=== PATIENT | female | born 1995 | race Caucasian/White ===

== ENCOUNTER 2016-07-25 00:32 | Emergency (ER) | payer OTHER ==
[~2016-07-25] VITALS: Ht 167.6 cm; Wt 110.0 kg
[2016-07-25 00:33] VITALS: TEMP 37.2; Ht 167.6 cm; Wt 110.0 kg
[2016-07-25] MEDS ORDERED: PRENTAB26 PO (00:55)
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
[2016-07-25 01:15] LABS: URINE APPEARANCE CLEAR (CLEAR); URINE BILIRUBIN NEG (NEG); URINE COLOR YELLOW; URINE EPITHELIAL CELL AUTO >30 /lpf (0-5); URINE NITRITE NEG (NEG); URINE SPECIFIC GRAVITY 1.016 (1.000-1.030); UROBILINOGEN NEG (NEG)
[2016-07-25 01:16] LABS: MANUAL MICROSCOPIC REQUIRED? NO; REVIEW REQ? YES
[2016-07-25 01:24] LABS: URINE MUCUS PRESENT (NONE PRSENT)
[2016-07-25 02:01] VITALS: BP 120/85; PULSE 90; O2SAT 99
--- NOTE | 2016-07-25 07:04 | DIAGNOSTIC IMAGING REPORT ---
ECTOPIC ULTRASOUND CLINICAL HISTORY: and abdominal cramping COMPARISON STUDY: No previous studies for comparison. FINDINGS: A single alive intrauterine gestation was visualized. The crown-rump length measured 8.6 cm corresponding to an estimated postmenstrual age of 14 weeks and 3 days. heart rate was 150. The placenta was anterior. There is a probable anterior myometrial contraction. Amniotic fluid volume was borderline diminished. Follow-up ultrasonography with a detailed anatomic study is recommended. IMPRESSION: 1. Single live intrauterine gestation. The estimate a postmenstrual age is 14 weeks and 3 days 2. Borderline diminished amniotic fluid volume 3. Anterior placenta. Bulbous appearance of the anterior uterus possibly representing a focal contraction Electronically signed by: Attila Pacheco M.D. 07/25/2016 7:02 AM Dictated Date/Time: 07/25/2016 7:00 AM
== END 2016-07-25 02:20 | disposition home or self-care (01) ==
LOC: C.EDB 00:33
DX: O26.892 Other specified pregnancy related conditions, second trimester (principal); Z3A.14 14 weeks gestation of pregnancy

== ENCOUNTER → 2016-08-05 | Outpatient (CLI) | payer OTHER ==
[~2016-08-05] MED LIST: PRENTAB26 PO; PYRI1TAB30
[2016-08-05 16:24] LABS: GTGD 50 Grams
== END | disposition home or self-care (01) ==
LOC: C.LAB1850 13:51
PROVIDERS: ATTEND Obstetrics & Gynecology
DX: O09.612 Supervision of young primigravida, second trimester (principal)

== ENCOUNTER → 2016-08-14 | Outpatient (CLI) | payer OTHER ==
[2016-08-14 11:53] LABS: THYROID STIMULATING HORMONE 2.29 uIu/ml (0.300-4.500)
== END | disposition home or self-care (01) ==
LOC: C.LAB1850 09:57
PROVIDERS: ATTEND Physician Assistant
DX: O99.280 Endocrine, nutritional and metabolic diseases complicating pregnancy, unspecified trimester (principal)

== ENCOUNTER → 2016-08-17 | Outpatient (CLI) | payer OTHER ==
[2016-08-20 17:26] LABS: MICROSOMAL AB 1 IU/ML (<9)
== END | disposition home or self-care (01) ==
LOC: C.LAB 10:38
PROVIDERS: ATTEND Physician Assistant
DX: O99.280 Endocrine, nutritional and metabolic diseases complicating pregnancy, unspecified trimester (principal)

== ENCOUNTER → 2016-09-13 | Outpatient (CLI) | payer OTHER ==
[~2016-09-13] MED LIST changes: +BCPILLS PO; +OXYC-57 PO
[2016-09-13 13:16] LABS: THYROID STIMULATING HORMONE 2.04 uIu/ml (0.300-4.500)
== END | disposition home or self-care (01) ==
LOC: C.LAB 11:16
PROVIDERS: ATTEND Physician Assistant
DX: R94.6 Abnormal results of thyroid function studies (principal)

== ENCOUNTER → 2016-10-30 | Outpatient (CLI) | payer OTHER ==
[2016-10-30 17:29] LABS: HEMATOCRIT 35.7 % (37-47)
[2016-10-30 17:48] LABS: URINE APPEARANCE CLEAR (CLEAR); URINE BILIRUBIN NEG (NEG); URINE COLOR YELLOW; URINE EPITHELIAL CELL AUTO >30 /lpf (0-5); URINE NITRITE NEG (NEG); URINE SPECIFIC GRAVITY 1.021 (1.000-1.030); UROBILINOGEN NEG (NEG)
[2016-10-30 17:55] LABS: MANUAL MICROSCOPIC REQUIRED? NO; REVIEW REQ? NO
[2016-10-30 19:23] LABS: GTGD 50 Grams
== END | disposition home or self-care (01) ==
LOC: C.LAB1850 16:06
PROVIDERS: ATTEND Obstetrics & Gynecology
DX: O09.612 Supervision of young primigravida, second trimester (principal)

== ENCOUNTER → 2016-11-03 | Outpatient (CLI) | payer OTHER ==
[2016-11-03 16:25] LABS: PATIENT HEIGHT 167.6 cm
[2016-11-03 16:44] LABS: HEMATOCRIT 35.9 % (37-47); MEAN CELL VOLUME 94.7 fL (80-100); MEAN CORPUSCULAR HEMOGLOBIN 31.9 pg (25-34); MEAN CORPUSCULAR HGB CONC 33.7 g/dl (32-36); MEAN PLATELET VOLUME 9.9 fL (7.4-10.4); PLATELET COUNT 274 K/uL (130-400); RED BLOOD COUNT 3.79 M/uL (4.2-5.4); WHITE BLOOD COUNT 12.17 K/uL (4.8-10.8)
[2016-11-03 17:06] LABS: CREATININE 0.53 mg/dl (0.60-1.20); URIC ACID 3.9 mg/dl (2.6-7.2)
[2016-11-03 17:19] LABS: URINE TOTAL PROTEIN 6.5 mg/dl (0-11.9)
[2016-11-03 17:46] LABS: CREATININE 0.53 mg/dl (0.6-1.2); URINE TOTAL PROTEIN CALC 100.8 mg/24 hr (0-149.1)
== END | disposition home or self-care (01) ==
LOC: C.LAB 15:53
PROVIDERS: ATTEND Obstetrics & Gynecology
DX: O13.3 Gestational [pregnancy-induced] hypertension without significant proteinuria, third trimester (principal)

== ENCOUNTER → 2016-11-08 | Outpatient (CLI) | payer OTHER ==
[2016-11-08 12:26] LABS: HEMATOCRIT 36.7 % (37-47); MEAN CELL VOLUME 94.3 fL (80-100); MEAN CORPUSCULAR HEMOGLOBIN 31.1 pg (25-34); MEAN PLATELET VOLUME 9.8 fL (7.4-10.4); PLATELET COUNT 288 K/uL (130-400); RED BLOOD COUNT 3.89 M/uL (4.2-5.4); WHITE BLOOD COUNT 11.82 K/uL (4.8-10.8)
[2016-11-08 12:44] LABS: ALT/SGPT 16 U/L (12-78); AST/SGOT 14 U/L (15-37); CREATININE 0.45 mg/dl (0.60-1.20)
[2016-11-08 12:46] LABS: ALKALINE PHOSPHATASE 93 U/L (45-117)
== END | disposition home or self-care (01) ==
LOC: C.LAB1850 10:47
PROVIDERS: ATTEND Obstetrics & Gynecology
DX: O13.3 Gestational [pregnancy-induced] hypertension without significant proteinuria, third trimester (principal)

== ENCOUNTER → 2016-11-15 | Outpatient (CLI) | payer OTHER ==
[2016-11-15 17:32] LABS: BASO % 0.1 %; BASO ABS # 0.01 K/uL (0-0.2); COMPLETE YES; EOS % 0.4 %; HEMATOCRIT 36.9 % (37-47); LYMPH % 15.7 %; LYMPH ABS # 1.79 K/uL (1.2-3.4); MEAN CELL VOLUME 93.9 fL (80-100); MEAN CORPUSCULAR HEMOGLOBIN 30.8 pg (25-34); MEAN CORPUSCULAR HGB CONC 32.8 g/dl (32-36); MEAN PLATELET VOLUME 9.7 fL (7.4-10.4); MONO % 7.1 %; NEUT % 75.7 %; PLATELET COUNT 265 K/uL (130-400); RED BLOOD COUNT 3.93 M/uL (4.2-5.4); WHITE BLOOD COUNT 11.37 K/uL (4.8-10.8)
[2016-11-15 18:04] LABS: ALT/SGPT 18 U/L (12-78); AST/SGOT 14 U/L (15-37); CREATININE 0.51 mg/dl (0.60-1.20)
== END | disposition home or self-care (01) ==
LOC: C.LAB1850 17:08
PROVIDERS: ATTEND Obstetrics & Gynecology
DX: R94.6 Abnormal results of thyroid function studies (principal); O13.3 Gestational [pregnancy-induced] hypertension without significant proteinuria, third trimester

== ENCOUNTER 2016-11-19 20:05 | Outpatient (CLI) | payer OTHER ==
[~2016-11-19] VITALS: Ht 167.6 cm; Wt 113.4 kg
[~2016-11-19 20:05] MED LIST changes: -BCPILLS PO; -OXYC-57 PO; -PYRI1TAB30
== END 2016-11-19 20:50 | disposition home or self-care (01) ==
LOC: C.LD 20:05 → C.OPB 20:05
PROVIDERS: ATTEND Obstetrics & Gynecology
DX: O26.893 Other specified pregnancy related conditions, third trimester (principal); R10.9 Unspecified abdominal pain; Z3A.31 31 weeks gestation of pregnancy

== ENCOUNTER → 2016-11-21 | Outpatient (CLI) | payer OTHER ==
[~2016-11-21] MED LIST changes: +PYRI1TAB30
[2016-11-21 10:32] LABS: ALT/SGPT 22 U/L (12-78); AST/SGOT 11 U/L (15-37); CREATININE 0.54 mg/dl (0.60-1.20)
[2016-11-21 10:35] LABS: ALKALINE PHOSPHATASE 111 U/L (45-117); URIC ACID 3.9 mg/dl (2.6-7.2)
== END | disposition home or self-care (01) ==
LOC: C.LAB1850 09:19
PROVIDERS: ATTEND Obstetrics & Gynecology
DX: O13.3 Gestational [pregnancy-induced] hypertension without significant proteinuria, third trimester (principal)

== ENCOUNTER → 2016-11-29 | Outpatient (CLI) | payer OTHER ==
[2016-11-29 17:21] LABS: BASO % 0.2 %; BASO ABS # 0.02 K/uL (0-0.2); COMPLETE YES; EOS % 0.3 %; HEMATOCRIT 36.5 % (37-47); IG% 1.3 %; LYMPH % 15.9 %; LYMPH ABS # 1.88 K/uL (1.2-3.4); MEAN CELL VOLUME 93.6 fL (80-100); MEAN CORPUSCULAR HGB CONC 33.2 g/dl (32-36); MEAN PLATELET VOLUME 9.8 fL (7.4-10.4); MONO % 5.7 %; NEUT % 76.6 %; PLATELET COUNT 287 K/uL (130-400); WHITE BLOOD COUNT 11.85 K/uL (4.8-10.8)
[2016-11-29 17:48] LABS: ALT/SGPT 16 U/L (12-78); AST/SGOT 10 U/L (15-37); CREATININE 0.55 mg/dl (0.60-1.20)
== END | disposition home or self-care (01) ==
LOC: C.LAB1850 16:19
PROVIDERS: ATTEND Obstetrics & Gynecology
DX: O09.613 Supervision of young primigravida, third trimester (principal); O13.3 Gestational [pregnancy-induced] hypertension without significant proteinuria, third trimester; Z3A.00 Weeks of gestation of pregnancy not specified

== ENCOUNTER → 2016-12-06 | Outpatient (CLI) | payer OTHER ==
[2016-12-06 16:38] LABS: HEMATOCRIT 37.2 % (37-47); MEAN CORPUSCULAR HEMOGLOBIN 30.3 pg (25-34); MEAN CORPUSCULAR HGB CONC 32.5 g/dl (32-36); MEAN PLATELET VOLUME 10.2 fL (7.4-10.4); PLATELET COUNT 265 K/uL (130-400); WHITE BLOOD COUNT 11.06 K/uL (4.8-10.8)
== END | disposition home or self-care (01) ==
LOC: C.LAB1850 15:25
PROVIDERS: ATTEND Obstetrics & Gynecology
DX: O13.3 Gestational [pregnancy-induced] hypertension without significant proteinuria, third trimester (principal)

== ENCOUNTER → 2016-12-13 | Outpatient (CLI) | payer OTHER ==
[2016-12-13 16:31] LABS: HEMATOCRIT 37.6 % (37-47); MEAN CELL VOLUME 92.8 fL (80-100); MEAN CORPUSCULAR HEMOGLOBIN 30.6 pg (25-34); MEAN PLATELET VOLUME 10.4 fL (7.4-10.4); PLATELET COUNT 252 K/uL (130-400); RED BLOOD COUNT 4.05 M/uL (4.2-5.4); WHITE BLOOD COUNT 10.76 K/uL (4.8-10.8)
[2016-12-13 16:53] LABS: ALT/SGPT 18 U/L (12-78); AST/SGOT 14 U/L (15-37); BLOOD UREA NITROGEN 5 mg/dl (7-18); BUN/CREATININE RATIO 12.1 (10-20); CALCIUM 9.4 mg/dl (8.5-10.1); CARBON DIOXIDE 23 mmol/L (21-32); CHLORIDE 108 mmol/L (98-107); CREATININE 0.41 mg/dl (0.60-1.20); GLUCOSE 77 mg/dl (70-99); POTASSIUM 3.7 mmol/L (3.5-5.1); SODIUM 139 mmol/L (136-145)
[2016-12-13 16:56] LABS: ALB/GLOB RATIO 0.6 (0.9-2); ALKALINE PHOSPHATASE 139 U/L (45-117)
[2016-12-13 17:16] LABS: THYROID STIMULATING HORMONE 3.04 uIu/ml (0.300-4.500)
== END | disposition home or self-care (01) ==
LOC: C.LAB1850 15:21
PROVIDERS: ATTEND Obstetrics & Gynecology
DX: O13.3 Gestational [pregnancy-induced] hypertension without significant proteinuria, third trimester (principal); Z3A.00 Weeks of gestation of pregnancy not specified; R94.6 Abnormal results of thyroid function studies

== ENCOUNTER → 2016-12-20 | Outpatient (CLI) | payer OTHER | END | disposition home or self-care (01) | LOC: C.LABSPEC 17:41 | PROVIDERS: ATTEND Obstetrics & Gynecology | DX: O13.3 Gestational [pregnancy-induced] hypertension without significant proteinuria, third trimester (principal) ==

== ENCOUNTER → 2016-12-20 | Outpatient (CLI) | payer OTHER ==
[2016-12-20 17:33] LABS: HEMATOCRIT 36.8 % (37-47); MEAN CELL VOLUME 92.5 fL (80-100); MEAN CORPUSCULAR HEMOGLOBIN 30.4 pg (25-34); MEAN CORPUSCULAR HGB CONC 32.9 g/dl (32-36); MEAN PLATELET VOLUME 10.1 fL (7.4-10.4); PLATELET COUNT 259 K/uL (130-400); RED BLOOD COUNT 3.98 M/uL (4.2-5.4); WHITE BLOOD COUNT 9.86 K/uL (4.8-10.8)
== END | disposition home or self-care (01) ==
LOC: C.LAB1850 16:12
PROVIDERS: ATTEND Obstetrics & Gynecology
DX: O13.3 Gestational [pregnancy-induced] hypertension without significant proteinuria, third trimester (principal)

== ENCOUNTER 2016-12-22 20:11 | Outpatient (CLI) | payer OTHER ==
[~2016-12-22] VITALS: Ht 167.6 cm; Wt 115.7 kg
[~2016-12-22 20:11] MED LIST changes: -PYRI1TAB30
[2016-12-22] MEDS ORDERED: PYRI1TAB30 (20:39)
[2016-12-22] MEDS ORDERED: PRENTAB26 PO (20:39)
[2016-12-22 20:40] VITALS: Ht 167.6 cm; Wt 115.7 kg
--- NOTE | 2017-01-03 10:52 | EDITING REQUIRED CODING QUERY ---
DIAGNOSIS NEEDED To promote full compliance with coding requirements relating to patient care, physician participation is requested in all cases of critical care nurse practitioner uncertainty. Please assist us with the question(s) below: Coding Question: The patient received care in labor and delivery on 12/22/16 as noted within the record. Please document the diagnosis that is being addressed by the medication/treatment. Provider Response: DIAGNOSIS: R/O rupture of membranes Thank you for your assistance, Lorelei Orourke - Afterschool Babysitter
== END 2016-12-22 21:00 | disposition home or self-care (01) ==
LOC: C.LD 20:11 → C.OPB 20:11
PROVIDERS: ATTEND Obstetrics & Gynecology
DX: Z34.03 Encounter for supervision of normal first pregnancy, third trimester (principal); Z3A.35 35 weeks gestation of pregnancy

== ENCOUNTER → 2016-12-27 | Outpatient (CLI) | payer OTHER ==
[~2016-12-27] MED LIST changes: +PYRI1TAB30
[2016-12-27 13:22] LABS: MEAN CORPUSCULAR HGB CONC 34.7 g/dl (32-36); MEAN PLATELET VOLUME 10.5 fL (7.4-10.4); PLATELET COUNT 247 K/uL (130-400); RED BLOOD COUNT 4.13 M/uL (4.2-5.4)
== END | disposition home or self-care (01) ==
LOC: C.LAB1850 12:26
PROVIDERS: ATTEND Obstetrics & Gynecology
DX: O13.3 Gestational [pregnancy-induced] hypertension without significant proteinuria, third trimester (principal); Z3A.00 Weeks of gestation of pregnancy not specified

== ENCOUNTER → 2017-01-02 | Outpatient (CLI) | payer OTHER ==
[2017-01-02 12:14] LABS: HEMATOCRIT 37.2 % (37-47); MEAN CELL VOLUME 91.4 fL (80-100); MEAN CORPUSCULAR HEMOGLOBIN 31.2 pg (25-34); MEAN CORPUSCULAR HGB CONC 34.1 g/dl (32-36); MEAN PLATELET VOLUME 10.5 fL (7.4-10.4); PLATELET COUNT 237 K/uL (130-400); RED BLOOD COUNT 4.07 M/uL (4.2-5.4); WHITE BLOOD COUNT 9.81 K/uL (4.8-10.8)
[2017-01-02 12:50] LABS: ALT/SGPT 15 U/L (12-78); AST/SGOT 13 U/L (15-37); BLOOD UREA NITROGEN 6 mg/dl (7-18); CARBON DIOXIDE 22 mmol/L (21-32); CHLORIDE 105 mmol/L (98-107); CREATININE 0.58 mg/dl (0.60-1.20); GLUCOSE 78 mg/dl (70-99); POTASSIUM 3.5 mmol/L (3.5-5.1); SODIUM 139 mmol/L (136-145)
[2017-01-02 12:53] LABS: ALB/GLOB RATIO 0.6 (0.9-2); ALKALINE PHOSPHATASE 156 U/L (45-117)
== END | disposition home or self-care (01) ==
LOC: C.LAB1850 11:32
PROVIDERS: ATTEND Obstetrics & Gynecology
DX: O13.3 Gestational [pregnancy-induced] hypertension without significant proteinuria, third trimester (principal)

== ENCOUNTER 2017-01-09 20:22 | Inpatient (IN) | payer OTHER ==
[~2017-01-09] VITALS: Ht 167.6 cm; Wt 119.0 kg
[2017-01-09] MEDS ORDERED: LACTATED RINGER'S 1000ML 1,000 ML IV PRN (20:32)
[2017-01-09] MEDS ORDERED: LACTATED RINGER'S 1000ML 1,000 ML IV SCH (20:32)
[2017-01-09 20:44] VITALS: Ht 167.6 cm; Wt 119.0 kg
[2017-01-09 20:56] LABS: MEAN CELL VOLUME 90.9 fL (80-100); MEAN CORPUSCULAR HEMOGLOBIN 28.7 pg (25-34); MEAN CORPUSCULAR HGB CONC 31.5 g/dl (32-36); MEAN PLATELET VOLUME 10.3 fL (7.4-10.4); PLATELET COUNT 259 K/uL (130-400); RED BLOOD COUNT 4.29 M/uL (4.2-5.4); WHITE BLOOD COUNT 12.16 K/uL (4.8-10.8)
[2017-01-09] MEDS ORDERED: PENICILLIN G POTASSIUM IV 6 MU in DEXTROSE 5% 250ML 250 ML IV ONE (21:00)
[2017-01-09] MEDS ORDERED: EpHEDrine SULFATE INJ 50 MG/ML AMP ONE (23:53)
[2017-01-09] MEDS ORDERED: FENTANYL 2MCG/ML ROPIV 1.25MG/ML 100ML BAG EPI ONE (23:53)
[2017-01-09] MEDS ORDERED: FENTANYL CITRATE INJ 50 MCG/1 ML 2 ML VIAL ONE (23:53)
[2017-01-09] MEDS ORDERED: BUPIVACAINE 0.25% 30 ML VIAL ONE (23:53)
[2017-01-10] MEDS: PENICILLIN G POTASSIUM IV 3 MU in DEXTROSE 5% 100ML 100 ML IV PRN ×3 (01:02→08:56)
[2017-01-10] MEDS ORDERED: NALOXONE HCL INJ 1 MG in SODIUM CHLORIDE 0.9% 1000ML 1,000 ML IV PRN (02:57)
[2017-01-10] MEDS ORDERED: LACTATED RINGER'S 1000ML 500 ML IV PRN ×2 (02:57→03:31)
[2017-01-10] MEDS ORDERED: DiphenhydrAMINE HCL 50 MG/ML VIAL IV PRN (03:00)
[2017-01-10] MEDS ORDERED: EpHEDrine SULFATE INJ 50 MG/ML AMP IV PRN (03:00)
[2017-01-10] MEDS ORDERED: NALOXONE HCL 0.4 MG/1 ML VIAL/CARP IV PRN (03:00)
[2017-01-10] MEDS ORDERED: ONDANSETRON INJ 2 MG/ML 2 ML VIAL IV PRN (03:00)
[2017-01-10] MEDS ORDERED: NALBUPHINE HCL INJ 10 MG/ML AMP IV PRN (03:00)
[2017-01-10] MEDS ORDERED: OXYTOCIN 30 UNITS/500ML NSS IV PRN ×2 (03:45→13:45)
[2017-01-10] MEDS ORDERED: OXYTOCIN 30 UNITS/500ML NSS IV ONE (04:40)
[2017-01-10] MEDS: FENTANYL 2MCG/ML ROPIV 1.25MG/ML 100ML BAG EPI PRN ×3 (07:04→11:58)
[2017-01-10] MEDS ORDERED: FENTANYL CITRATE INJ 50 MCG/1 ML 2 ML VIAL ONE (11:24)
[2017-01-10] MEDS ORDERED: BUPIVACAINE 0.25% 30 ML VIAL ONE (11:24)
--- NOTE | 2017-01-10 11:35 | Anesthesiology Progress Note ---
Post OP Pain Management Date & Time of Service Jan 10, 2017 at 11:31 Subjective Therapies: Epidural/IV Drugs, Marcaine, Fentanyl pain 03/04; Objective Cathether Site: examined, palpated, intact, dry, non-tender, without erythma, without exudate Assessment & Plan Pain Relief Assessment: pt epidural to be bolused Plan: epidural catheter bolused with 12 ml 0.17% bupivacaine + 100 mcgs fentanyl with incremental aspirations and injections.No blood or CSF
[2017-01-10] MEDS ORDERED: LACTATED RINGER'S 1000ML 1,000 ML IV SCH (13:34)
[2017-01-10] MEDS ORDERED: LANOLIN OINT EXT PRN ×2 (13:45)
[2017-01-10] MEDS ORDERED: ACETAMINOPHEN 325 MG TAB PO PRN (13:45)
[2017-01-10] MEDS ORDERED: BENZOCAINE 20% AER SPR 82.5 GM CAN EXT PRN (13:45)
[2017-01-10] MEDS ORDERED: SUPERCREAM 0.870 % 15GM JAR EXT PRN (13:45)
[2017-01-10] MEDS ORDERED: IBUPROFEN 600 MG TAB PO PRN (13:45)
[2017-01-10] MEDS ORDERED: DIPHTHERIA/TETANUS/PERTUSSIS 0.5 ML SYR/VIAL IM. ONE (13:45)
[2017-01-10] MEDS ORDERED: OXYCODONE/ACETAMINOPHEN 5-325 TAB PO PRN (13:45)
[2017-01-10] MEDS ORDERED: HYDROCORTISONE ACETATE 25 MG SUPP PR PRN (13:45)
--- NOTE | 2017-01-10 14:08 | DELIVERY SUMMARY ---
DATE OF OPERATION: 01/10/2017 VAGINAL DELIVERY NOTE DATE OF DELIVERY: 01/10/2017. PREOPERATIVE DIAGNOSIS: 1. Cuellar intrauterine at 38 and 3. 2. Normal labor. 3. GBS positive. POSTOPERATIVE DIAGNOSIS: Same. PROCEDURE: Spontaneous vaginal delivery and repair of first degree posterior vaginal laceration. SURGEON: Dr. Lomeli. ASSIST: PGY1. ESTIMATED BLOOD LOSS: 400. COMPLICATIONS: none. DISPOSITION: Stable in labor and delivery. DESCRIPTION: Alma Delia is a G1, P2 who was admitted by my partner Dr. Ambriz. I assumed care of the patient at 8:30 in the morning on 01/10/2017. The patient continued to progress using Pitocin augmentation and an epidural for pain management and ultimately reached complete dilation with an urge to push. The patient was coached through her second stage of labor with myself gowned and prepared at the bedside as well as Dr. Mcgill who is our current PGY1 also gowned and prepped at the bedside. The patient had a prolonged phase and as the estimated weight was known to be approximately 4,000 grams predelivery we were extremely conscious of the possibilities that should dystocia could be ahead of us. Stools were prepared on either side of the bed and the bed was set up such that Francy positioning would be easy by leaving the bottom of the bed intact. The patient finally was able to achieve delivery of the head. The restituted such that the left infant shoulder was inferior. There was also noted to be a nuchal cord. The nuchal cord was reduced at the perineum. The patient was then placed in Francy position from the posterior aspect of the anterior shoulder, suprapubic pressure was applied and through the next push the shoulder was noted to slide beneath the pubic arch and deliver smoothly. The opposite shoulder delivered from the posterior. The infant then needed to be rotated through 360 degrees in a corkscrew manner in order to allow delivery of the torso with additional maternal pushing efforts. Once the infant hips had delivered the remainder of the infants legs delivered easily without further pushing efforts. The was placed on the maternal abdomen where it quickly resuscitated and was noted to make respiratory efforts and move all 4 extremities equally. The cord was doubly clamped and cut and the was taken to the warmer. Cord blood was collected. The placenta delivered spontaneously and was intact with a 3-vessel cord. The cervix, vagina and perineum were examined and found to have only a first degree posterior vaginal laceration which was repaired using 3-0 Vicryl in a usual running locked manner. At the completion of repair the fundus was firm, lochia was minimal and mother and infant were in stable condition having tolerated delivery well. I attest to the content of the Intraoperative Record and any orders documented therein. Any exception s are noted below.
--- NOTE | 2017-01-10 15:28 | Anesthesia Procedure Note ---
Anesthesia Epidural Removal Nt Date & Time Jan 10, 2017 at 15:27 Vital Signs Pain Intensity: 0.0 Notes Mental Status: alert / awake / arousable, participated in evaluation Nausea / Vomiting: adequately controlled Pain: adequately controlled Airway Patency, RR, SpO2: stable & adequate BP & HR: stable & adequate Hydration State: stable & adequate Neuraxial Anesthesia: was administered Anesthetic Complications: no major complications apparent, pt satisfied with anesthetic care Epidural: removed without complications, with tip intact
--- NOTE | 2017-01-10 16:55 | Discharge Instructions ---
Discharge Instructions Date of Service Jan 10, 2017. Admission Reason for Admission: 38 Wk Gestation Of Discharge Discharge Diagnosis / Problem: after delivery Discharge Goals Goal(s): Routine recovery after delivery Activity Recommendations Activity Limitations: per Instructions/Follow-up section . Instructions / Follow-Up Instructions / Follow-Up ACTIVITY RECOMMENDATIONS: * Gradual return to full activity over the next 2-3 weeks. * No lifting - nothing heavier than baby over the next 2-3 weeks. * Do not engage in vigorous exercise, sexual activity or sports until cleared by your physician. * Do not drive or operate any motorized equipment until cleared by your physician. * You may shower/bathe daily. MEDICATIONS: For discomfort or pain, you may use Acetaminophen (Tylenol), Ibuprofen (Advil), or Naproxen (Aleve) following the package directions. For constipation you may use Colace following the package directions. BREAST CARE: If you are not breast feeding: * Wear a supportive bra 24 hours a day for one to two weeks. * Avoid stimulating your breasts and nipples as much as possible during the first few weeks after delivery. * When taking a shower, have the warm water hit your back, not breasts. * When your breasts feel full, apply ice packs. Usually three to four times a day helps ease the discomfort. * Take a mild pain medication (Tylenol / Motrin) when you are uncomfortable. If breast feeding: * Use breast milk to lubricate nipples. Lansinoh cream may be used for sore nipples. You do not need to remove cream prior to breast feeding. If using a different brand of cream, check the label for directions regarding removal of cream prior to nursing. * Wear a supportive bra. * If having problems with breasts or breast feeding, call a client relationship consultant or your health care provider. EPISIOTOMY CARE: After delivery, if you have an episiotomy (stitches), the following steps will ease discomfort and aid healing. * For the first 24 hours after delivery, place ice packs next to your episiotomy to help reduce swelling. * After the first 24 hour-period, sitz baths, either portable or in the tub, are suggested. A shower with a shower arm sprayed over the episiotomy may be comforting. * Emmy care should be done after each voiding and bowel movement. Squirt warm water from a plastic bottle over the perineum (region of the body between the anus and urinary opening) and pat dry. * Use Dermoplast to ease discomfort. Shake container. Western directly over the episiotomy. Place a Tucks on a clean sanitary pad next to your episiotomy. SPECIAL CARE INSTRUCTIONS: When you are discharged from the hospital, it is important for you to follow the instructions listed below: * During the first week at home, you should be able to care for yourself and your baby. In addition, the usual light household activities are encouraged. * Limit your activities to the way you feel. Do not try to clean the house or move furniture. Be sensible. * If you actively engage in sports and have done so up until the time of your delivery, you may resume these activities as soon as you feel able. This may take up to one month or even longer. Use good judgment. * Continue to take your vitamins for at least six weeks after the of your baby. * Your diet need not be limited unless you were on a special diet before your delivery. Breast-feeding mothers need around 2500 calories per day and at least 64-80 ounces of fluid per day (8 to 10 glasses). * You should eat foods from the four major food groups. Crash diets or fad diets are to be avoided. Eating lean meats, fresh fruits and vegetables, low-fat dairy products, high fiber foods and a regular exercise program, will help you get back to your pre- weight without putting your health at risk. * Constipation is sometimes a problem after delivery. Take a mild laxative as needed. If breast feeding, Milk of Magnesia is acceptable to use. You may use a suppository or Fleets enema if no episiotomy. * A daily shower or tub bath is suggested. Be sure to thoroughly and gently dry the perineum. * A bloody vaginal discharge will usually continue until around four weeks post . A small amount of bleeding may continue for as long as six weeks. Vaginal discharge changes from the bright red bleeding after delivery to pink then brownish and finally yellowish-pink before becoming white and disappearing. * Bleeding may increase with activity. Your first period may come in 4-8 weeks. If you are breast feeding, your period may be delayed even longer. * Hernandez (sex) can begin whenever both you and your partner feel comfortable and do not have any form of genital infection. It is recommended that you wait at least six weeks for internal and external healing to occur. If you have questions, please talk to your health care practitioner. A condom should be used to prevent infection and . * Foreplay, gentle intercourse and lubrication is very important the first several times to prevent pain. A water-based lubricant such as K-Y jelly or Astroglide may be used. * If you have RH negative blood and your baby is RH positive, you will receive RHOGAM by injection prior to discharge. The nurse will give you a card to keep with you that has the date and place that you received RHOGAM after delivery. * During your care, you had a Rubella screen done to check for the presence of rubella antibodies in your blood. If your test was negative, you will receive a Rubella vaccine prior to discharge. This vaccine may cause a fever, soreness at the injection site and flu-like symptoms. If these symptoms persist, notify your health care practitioner. is not advised for one month after a Rubella vaccine. * Verbalizes understanding of car seat law as reviewed with patient nursing. * Car Seat hand-out given and reviewed with patient by nursing. * Shaken baby information reviewed with patient by nursing. Call you doctor if: * Heavy bleeding (saturating several pads an hour) or passing clots the size of your fist. * A fever >101 degrees F (38.3 degrees C) on two occasions four hours apart and /or chills. * Unusual pain in the pelvic or vaginal areas. * "Baby Blues" lasting longer than two weeks. If you have any questions or concerns, call your health care practitioner at . FOLLOW UP VISIT: * Please call the office at to schedule a 6 week examination. It is important you keep this appointment. It is important for you to make arrangements for either yearly or twice yearly check-ups thereafter. Current Hospital Diet Patient's current hospital diet: Regular OB Diet Discharge Diet Recommended Diet: Regular Diet Pending Studies Studies pending at discharge: no Medical Emergencies . Who to Call and When: Medical Emergencies: If at any time you feel your situation is an emergency, please call 911 immediately. . Non-Emergent Contact Non-Emergency issues call your: Mine Exploration Engineer . . "Provider Documentation" section prepared by Yuri Mcgill. . VTE Core Measure Inpt VTE Proph given/why not?: Treatment not indicated
[2017-01-10 17:05] VITALS: BP 132/72; PULSE 94; TEMP 36.6; O2SAT 99
[2017-01-10 20:00] VITALS: BP 119/81; PULSE 73; TEMP 36.8; O2SAT 98
[2017-01-10] MEDS: DOCUSATE SODIUM 100 MG CAP PO SCH (20:24)
[2017-01-11 00:30] VITALS: BP 131/85; PULSE 93; TEMP 36.6
[2017-01-11 04:00] VITALS: BP 130/80; PULSE 90; TEMP 36.6
--- NOTE | 2017-01-11 06:07 | OB/GYN Progress Note ---
LIFE ENRICHMENT DIRECTOR Progress Note Date of Service Jan 11, 2017. Subjective conversation w/ patient, physical exam, chart review, lab review Ambulation: ambulating normally Voiding: no voiding problems Diet Tolerance: Regular Diet Lochia: Small Feeding Type: Bottle Feeding Pain: mild pain Review of Systems Constitutional: No fever Respiratory: No shortness of breath Cardiac: No chest pain Abdomen: No nausea, No vomiting Female : No dysuria Objective Vital Signs Date Time Temp Pulse Resp B/P (MAP) Pulse Ox O2 Delivery O2 Flow Rate FiO2 01/11/17 04:00 36.6 90 20 130/80 (97) Room Air 01/11/17 00:30 36.6 93 18 131/85 (100) Room Air 01/11/17 00:30 Room Air 01/10/17 20:00 36.8 73 18 119/81 (94) 98 Room Air 01/10/17 17:05 36.6 94 18 132/72 (92) 99 Room Air 01/10/17 17:05 99 Room Air Physical Exam General Appearance: WELL-APPEARING Respiratory/Chest: lungs clear, normal breath sounds, no respiratory distress Cardiovascular: regular rate, rhythm Abdomen: normal bowel sounds, non tender, soft Fundus: Firm, Relation to Umbilicus (2 below u) Extremities: non-tender, no pedal edema Laboratory Results Last 24 Hours Test 01/11/17 04:44 Medications Current Inpatient Medications Medications (Trade) Dose Ordered Sig/Felix Route Start Time Stop Time Status Last Admin Dose Admin Penicillin G Potassium 3 mu/ Dextrose 106 ml @ 100 mls/hr Q4H PRN IV 01/09/17 20:45 01/11/17 20:44 01/10/17 08:56 100 MLS/HR Lactated Ringer's 1,000 ml @ 125 mls/hr Q8H IV 01/09/17 20:32 01/11/17 20:31 01/09/17 21:09 125 MLS/HR Lactated Ringer's 1,000 ml @ 999 mls/hr Q1H1M PRN IV 01/09/17 20:32 02/08/17 20:31 Oxytocin (Pitocin IV) 30 units UD PRN IV 01/10/17 03:45 02/09/17 03:44 01/10/17 04:46 30 UNITS Lactated Ringer's 500 ml @ 999 mls/hr Q31M PRN IV 01/10/17 03:31 02/09/17 03:30 Lactated Ringer's 1,000 ml @ 125 mls/hr Q8H IV 01/10/17 13:34 02/09/17 13:33 Oxytocin (Pitocin IV) 30 units UD PRN IV 01/10/17 13:45 02/09/17 13:44 Benzocaine (Dermoplast Aero Spr) 1 appln PRN PRN EXT 01/10/17 13:45 02/09/17 13:44 Cocaine HCl (Supercream 0.870% Cr) BID PRN EXT 01/10/17 13:45 01/24/17 13:44 Hydrocortisone Acetate (Anusol Hc Supp) 25 mg BID PRN AR 01/10/17 13:45 02/09/17 13:44 Lanolin (Lanolin Oint) PRN PRN EXT 01/10/17 13:45 02/09/17 13:44 Prenat Multivit/ Box/Iron/Folic Ac ( Vitamin Tab) 1 tab DAILY PO 01/11/17 08:00 02/10/17 07:59 Ibuprofen (Motrin Tab) 600 mg Q4H PRN PO 01/10/17 13:45 02/09/17 13:44 Acetaminophen (Tylenol Tab) 650 mg Q6H PRN PO 01/10/17 13:45 02/09/17 13:44 Oxycodone/ Acetaminophen (Percocet 5-325mg Tab) 1 tab Q4H PRN PO 01/10/17 13:45 01/24/17 13:44 Docusate Sodium (coLACE CAP) 100 mg BID PO 01/10/17 20:00 02/09/17 19:59 01/10/17 20:24 100 MG Assessment and Plan Post- Day Number: 1 Continue Routine Care: A/P: This is a 22 y/o female, , PPD#1 s/p normal vaginal delivery. She is ambulating and clinically stable. Plan: - Vitals signs are reviewed and WNL (Tmax 36.8) - Last Hgb is 12.3 (01/10). This AM pending - Blood type O+, GBS pos, Rubella Immune - Routine care - Encourage ambulation, monitor and control pain with medication as needed, continue with regular diet as tolerated and monitor lochia - Stool softeners and sitz bath recommended - Encourage breast feeding and educate about breast feeding Resident Physician Supervision Note: I was present with Dr. Mcgill during the history and exam. I discussed the case with the resident and agree with the findings and plan as documented in the note. Any exceptions or clarifications are listed here: doing well. denies complaints. routine pp care. bps have been normal. Documented By: Fannie Hanks Resident Involvement: Resident Care Provided Care Provided: OB Delivery
[2017-01-11 08:15] VITALS: BP 120/77; PULSE 72; TEMP 36.7
[2017-01-11] MEDS: PRENATAL VITAMIN TAB PO SCH (08:40)
[2017-01-11] MEDS: DOCUSATE SODIUM 100 MG CAP PO SCH ×2 (08:40→21:08)
[2017-01-11 12:10] VITALS: BP 106/71; PULSE 85; TEMP 36.6
[2017-01-11 15:40] VITALS: BP 121/79; PULSE 76; TEMP 36.6
[2017-01-11 23:30] VITALS: BP 124/85; PULSE 80; TEMP 36.5; O2SAT 99
--- NOTE | 2017-01-12 06:54 | Progress Note ---
Subjective Jan 12, 2017. Subjective conversation w/ patient, physical exam Ambulation: ambulating normally Voiding: no voiding problems Passing Gas: Yes Diet Tolerance: Regular Diet Lochia: Moderate Feeding Type: Breast Feeding Review of Systems Constitutional: No fever Cardiac: No chest pain Abdomen: No nausea, No vomiting Objective Vital Signs Date Time Temp Pulse Resp B/P (MAP) Pulse Ox O2 Delivery O2 Flow Rate FiO2 01/11/17 23:30 99 Room Air 01/11/17 23:30 36.5 80 20 124/85 (98) 99 Room Air 01/11/17 15:40 36.6 76 22 121/79 (93) Room Air 01/11/17 15:40 Room Air 01/11/17 12:10 36.6 85 20 106/71 (83) Room Air 01/11/17 08:15 Room Air 01/11/17 08:15 36.7 72 20 120/77 (91) Room Air Physical Exam General Appearance: WELL-APPEARING, NO APPARENT DISTRESS Respiratory/Chest: chest non-tender Cardiovascular: no edema Abdomen: non tender, soft Fundus: Firm Extremities: no calf tenderness Assessment and Plan Post- Day#: 2
[2017-01-12 07:25] VITALS: BP 115/73; PULSE 72; TEMP 36.7
[2017-01-12] MEDS: PRENATAL VITAMIN TAB PO SCH (08:12)
[2017-01-12] MEDS: DOCUSATE SODIUM 100 MG CAP PO SCH (08:12)
[2017-01-12 13:09] VITALS: BP_DIAS 73; PULSE 72; TEMP 36.7
== END 2017-01-12 13:10 | disposition home or self-care (01) | DRG 775 ==
LOC: C.OPB 20:22 → C.LD 20:23 → C.OPB 20:35 → C.LD 20:35 → C.OBG 01-10 17:40
PROVIDERS: ADMIT Obstetrics & Gynecology; ATTEND Obstetrics & Gynecology
PROC: 10E0XZZ Delivery of Products of Conception, External Approach (ICD-10-PCS; principal; 2017-01-10)
PROC: 0HQ9XZZ Repair Perineum Skin, External Approach (ICD-10-PCS; principal; 2017-01-10)
DX: O99.824 Streptococcus B carrier state complicating childbirth (principal); O69.81X0 Labor and delivery complicated by cord around neck, without compression, not applicable or unspecified; O70.0 First degree perineal laceration during delivery; Z3A.38 38 weeks gestation of pregnancy; Z37.0 Single live birth

== ENCOUNTER → 2017-01-09 | Outpatient (CLI) | payer OTHER ==
[2017-01-09 13:31] LABS: BASO % 0.2 %; BASO ABS # 0.02 K/uL (0-0.2); COMPLETE YES; EOS % 0.3 %; HEMATOCRIT 38.2 % (37-47); IG% 0.5 %; LYMPH % 16.9 %; LYMPH ABS # 1.86 K/uL (1.2-3.4); MEAN CORPUSCULAR HEMOGLOBIN 30.1 pg (25-34); MEAN CORPUSCULAR HGB CONC 32.7 g/dl (32-36); MEAN PLATELET VOLUME 10.5 fL (7.4-10.4); MONO % 7.6 %; NEUT % 74.5 %; PLATELET COUNT 259 K/uL (130-400); RED BLOOD COUNT 4.15 M/uL (4.2-5.4); WHITE BLOOD COUNT 11.02 K/uL (4.8-10.8)
[2017-01-09 14:07] LABS: ALT/SGPT 15 U/L (12-78); BLOOD UREA NITROGEN 5 mg/dl (7-18); BUN/CREATININE RATIO 9.6 (10-20); CALCIUM 9.2 mg/dl (8.5-10.1); CARBON DIOXIDE 23 mmol/L (21-32); CHLORIDE 105 mmol/L (98-107); CREATININE 0.49 mg/dl (0.60-1.20); GLUCOSE 77 mg/dl (70-99); POTASSIUM 3.7 mmol/L (3.5-5.1); SODIUM 138 mmol/L (136-145)
[2017-01-09 14:10] LABS: ALB/GLOB RATIO 0.6 (0.9-2); ALKALINE PHOSPHATASE 162 U/L (45-117); AST/SGOT 13 U/L (15-37)
== END | disposition home or self-care (01) ==
LOC: C.LAB1850 11:19
PROVIDERS: ATTEND Obstetrics & Gynecology
DX: O13.3 Gestational [pregnancy-induced] hypertension without significant proteinuria, third trimester (principal); Z3A.00 Weeks of gestation of pregnancy not specified

== ENCOUNTER 2017-09-01 01:35 | Emergency (ER) | payer OTHER ==
[~2017-09-01] VITALS: Ht 167.6 cm; Wt 117.2 kg
[~2017-09-01 01:35] MED LIST changes: +BCPILLS PO; -PRENTAB26 PO; -PYRI1TAB30
[2017-09-01 01:38] VITALS: TEMP 36.7; Ht 167.6 cm; Wt 117.2 kg
[2017-09-01 02:16] LABS: BASO % 0.3 %; BASO ABS # 0.03 K/uL (0-0.2); EOS % 1.1 %; HEMATOCRIT 41.2 % (37-47); HEMOGLOBIN 14.1 g/dL (12.0-16.0); IG# 0.01 K/uL (0.00-0.02); LYMPH % 34.7 %; LYMPH ABS # 3.19 K/uL (1.2-3.4); MEAN CELL VOLUME 89.8 fL (80-100); MEAN CORPUSCULAR HEMOGLOBIN 30.7 pg (25-34); MEAN CORPUSCULAR HGB CONC 34.2 g/dl (32-36); MEAN PLATELET VOLUME 9.7 fL (7.4-10.4); MONO % 5.1 %; MONO ABS # 0.47 K/uL (0.11-0.59); NEUT % 58.7 %; NEUT ABS # 5.39 K/uL (1.4-6.5); PLATELET COUNT 253 K/uL (130-400); RED CELL DISTRIBUTION WIDTH CV 12.6 % (11.5-14.5); RED CELL DISTRIBUTION WIDTH SD 40.7 fL (36.4-46.3); WHITE BLOOD COUNT 9.19 K/uL (4.8-10.8)
--- NOTE | 2017-09-01 02:31 | EMERGENCY ROOM VISIT NOTE ---
History First contact with patient: 01:43 Chief Complaint: ABDOMINAL PAIN Stated Complaint: ABDOMINAL PAIN Nursing Triage Summary: patient reports december had a baby,patient had gallbladder surgery in march,patient reports moving furniture in June and having abdominal pain History of Present Illness The patient is a 22 year old female who presents to the Emergency Room with complaints of abdominal pain ongoing for the past 2 months. The patient reports that she has pain throughout her abdomen every night when she is getting ready for bed. She states the pain typically starts around 7:53 PM. It is primarily in the upper abdomen and right side of the abdomen. She rates the discomfort as 7/10 and states the pain is difficult to localize. The pain is somewhat crampy. She has taken Advil and Tylenol which does not seem to help the pain. She states that when she falls asleep, the pain goes away by the morning. The patient does note that she had a vaginal delivery 8 months ago and a cholecystectomy 5 months ago. She states that 2 months ago, prior to when the pain began, she did help her cousin move and lifted some heavy objects. She does not have pain throughout the day. She does not drink alcohol. She denies any history of other abdominal issues. She denies urinary symptoms, vomiting, or changes in her bowel movements. She does note she sometimes becomes nauseous when she has the pain. Review of Systems A complete 10 point review of systems was reviewed with the patient with pertinent positives and negatives as per history of present illness. All else were negative. Past Medical/Surgical History Medical Problems: (1) 38 weeks gestation of (2) Amniotic fluid leaking (3) Cholelithiasis with cholecystitis without obstruction (4) Cramping affecting , antepartum (5) with 31 completed weeks gestation Surgical Problems: (1) [place] teeth removed Family History FH: cancer FH: diabetes mellitus FH: gallbladder disease FH: heart disease FH: hypertension Social History Smoking Status: Never Smoker Alcohol Use: none Drug Use: none Marital Status: in relationship Housing Status: lives with family Occupation Status: employed Current/Historical Medications Scheduled Control Pills ( Control Pills), 1 TAB PO DAILY Physical Exam Vital Signs Date Time Temp Pulse Resp B/P (MAP) Pulse Ox O2 Delivery O2 Flow Rate FiO2 09/01/17 03:09 85 18 156/96 99 09/01/17 01:38 36.7 85 18 148/98 99 Room Air Physical Exam VITALS: Vitals are noted on the nurse's note and reviewed by myself. Vital signs stable. GENERAL: This is a 22-year-old female, in no acute distress, nondiaphoretic, well-developed well-nourished. SKIN: The skin was without rashes. EARS: External auditory canals clear, tympanic membranes pearly hartley without erythema or effusion bilaterally. EYES: Pupils equal round and reactive to light and accommodation. MOUTH: Mucous membranes moist. Tonsils are not enlarged. Pharynx without erythema or exudate. NECK: Supple without nuchal rigidity. No lymphadenopathy. HEART: Regular rate and rhythm without murmurs gallops or rubs. LUNGS: Clear to auscultation bilaterally without wheezes, rales or rhonchi. ABDOMEN: Positive bowel sounds x 4. There is mild tenderness to palpation in the right upper quadrant, right middle abdomen, right lower quadrant and left upper quadrant. No guarding rebound tenderness. No organomegaly. NEURO: Patient was alert and oriented to person place and time. Medical Decision & Procedures ER Provider Diagnostic Interpretation: ABDOMINAL SERIES: Moderate constipation. No obstruction. Per my interpretation Laboratory Results 09/01/17 02:05 Red Blood Count 4.59, Mean Corpuscular Volume 89.8, Mean Corpuscular Hemoglobin 30.7, Mean Corpuscular Hemoglobin Concent 34.2, Mean Platelet Volume 9.7, Neutrophils (%) (Auto) 58.7, Lymphocytes (%) (Auto) 34.7, Monocytes (%) (Auto) 5.1, Eosinophils (%) (Auto) 1.1, Basophils (%) (Auto) 0.3, Neutrophils # (Auto) 5.39, Lymphocytes # (Auto) 3.19, Monocytes # (Auto) 0.47, Eosinophils # (Auto) 0.10, Basophils # (Auto) 0.03 09/01/17 02:05 Test 09/01/17 02:04 09/01/17 02:05 Urine Color YELLOW Urine Appearance CLEAR (CLEAR) Urine pH 5.5 (4.5-7.5) Urine Specific [place] 1.029 (1.000-1.030) Urine Protein NEG (NEG) Urine Glucose (UA) NEG (NEG) Urine Ketones NEG (NEG) Urine Occult Blood NEG (NEG) Urine Nitrite NEG (NEG) Urine Bilirubin NEG (NEG) Urine Urobilinogen NEG (NEG) Urine Leukocyte Esterase TRACE (NEG) Urine WBC (Auto) 5-10 /hpf (0-5) Urine RBC (Auto) 0-4 /hpf (0-4) Urine Hyaline Casts (Auto) 1-5 /lpf (0-5) Urine Epithelial Cells (Auto) >30 /lpf (0-5) Urine Bacteria (Auto) 1+ (NEG) Urine Test NEG (NEG) White Blood Count 9.19 K/uL (4.8-10.8) Red Blood Count 4.59 M/uL (4.2-5.4) Hemoglobin 14.1 g/dL (12.0-16.0) Hematocrit 41.2 % (37-47) Mean Corpuscular Volume 89.8 fL (80-100) Mean Corpuscular Hemoglobin 30.7 pg (25-34) Mean Corpuscular Hemoglobin Concent 34.2 g/dl (32-36) Platelet Count 253 K/uL (130-400) Mean Platelet Volume 9.7 fL (7.4-10.4) Neutrophils (%) (Auto) 58.7 % Lymphocytes (%) (Auto) 34.7 % Monocytes (%) (Auto) 5.1 % Eosinophils (%) (Auto) 1.1 % Basophils (%) (Auto) 0.3 % Neutrophils # (Auto) 5.39 K/uL (1.4-6.5) Lymphocytes # (Auto) 3.19 K/uL (1.2-3.4) Monocytes # (Auto) 0.47 K/uL (0.11-0.59) Eosinophils # (Auto) 0.10 K/uL (0-0.5) Basophils # (Auto) 0.03 K/uL (0-0.2) RDW Standard Deviation 40.7 fL (36.4-46.3) RDW Coefficient of Variation 12.6 % (11.5-14.5) Immature Granulocyte % (Auto) 0.1 % Immature Granulocyte # (Auto) 0.01 K/uL (0.00-0.02) Anion Gap 9.0 mmol/L (3-11) Est Creatinine Clear Calc Drug Dose 131.6 ml/min Estimated GFR () 108.9 Estimated GFR (Non- 93.9 BUN/Creatinine Ratio 15.9 (10-20) Calcium Level 8.9 mg/dl (8.5-10.1) Total Bilirubin 0.7 mg/dl (0.2-1) Aspartate Amino Transf (AST/SGOT) 15 U/L (15-37) Alanine Aminotransferase (ALT/SGPT) 30 U/L (12-78) Alkaline Phosphatase 101 U/L (45-117) Total Protein 7.9 gm/dl (6.4-8.2) Albumin 3.6 gm/dl (3.4-5.0) Globulin 4.3 gm/dl (2.5-4.0) Albumin/Globulin Ratio 0.8 (0.9-2) Lipase 147 U/L (73-393) Medical Decision Differential diagnosis includes pancreatitis, gastritis, peptic ulcer disease, constipation, hernia, urinary tract infection, kidney stones, among others. The patient is a 22-year-old female who presents today complaining of abdominal pain. The patient has had abdominal pain every night for 2 months. She has mild tenderness on exam. Labs revealed no leukocytosis, anemia or concerning electrolyte abnormalities. Lipase was within normal limits. LFTs within normal limits. Urinalysis was suggestive of contamination rather than infection and will be sent for culture. Urine was negative. Abdominal series was interpreted by myself and appears to show moderate constipation. This may be causing the patient's discomfort and she was advised to add fiber supplementation to her diet. I did recommend the use of MiraLAX. I offered further workup including CT scan to the patient. She declined at this time. She prefers to try conservative treatment first and follow-up with your primary care provider. She was advised to return here with worsening pain , fevers, vomiting or other new/concerning symptoms. Based on the patient's presentation and work up, I feel the patient is stable for outpatient treatment. The patient was educated to return to the emergency department for any worsening of their current condition or new/concerning symptoms. She will follow up with her PCP. Medication Reconcilliation Current Medication List: was personally reviewed by me Blood Pressure Screening Patient's blood pressure: Elevated blood pressure Blood pressure disposition: Referred to PCP Impression Primary Impression: Right sided abdominal pain Additional Impression: Constipation Departure Information Dispostion Home / Self-Care Condition GOOD Referrals No Doctor, Assigned (PCP) Patient Instructions My [facility] Additional Instructions You have been treated in the Emergency Department today for abdominal pain. Your x-ray shows evidence of constipation. Laboratory results and imaging studies do not indicate any emergent issues warranting surgery or admission. You should drink plenty of fluids and stay well hydrated as this can help soften your stool. Increasing your fiber intake can help with frequency and consistency of your stools. Fruits, vegetables, and whole grains are all good sources of dietary fibers. In addition, you might consider adding supplemental fiber to your diet as well (i.e. Benefiber, Fiber Choice, Metamucil). You should try [id number] laxatives like MiraLAX to help with the constipation. It is very important to follow-up with your primary care provider within 2 weeks for a recheck and consideration of any further testing. Return to the Emergency Department if your current symptoms worsen despite treatment course outlined above, or if you develop any of the following symptoms : worsening abdominal pain, large amount of blood in the stool, black or tarry stools, fevers, chills, or uncontrollable vomiting. Problem Qualifiers Additional Impression: Constipation Constipation type: unspecified constipation type Qualified Codes: K59.00 - Constipation, unspecified
[2017-09-01 02:33] LABS: ALBUMIN 3.6 gm/dl (3.4-5.0); CALCIUM 8.9 mg/dl (8.5-10.1); CREATININE 0.88 mg/dl (0.60-1.20); POTASSIUM 3.6 mmol/L (3.5-5.1)
[2017-09-01 02:36] LABS: TOTAL PROTEIN 7.9 gm/dl (6.4-8.2)
[2017-09-01 03:09] VITALS: BP 156/96; PULSE 85; O2SAT 99
--- NOTE | 2017-09-01 06:41 | DIAGNOSTIC IMAGING REPORT ---
ABDOMEN 2VIEW W/PA CHEST RTN HISTORY: 22 years-old Female right sided abdominal pain x 2 months acute right-sided abdominal pain COMPARISON: None available TECHNIQUE: PA view of the chest with erect and supine views of the abdomen FINDINGS: Cardiomediastinal and hilar silhouettes are within normal limits. There is no pneumothorax, pleural effusion or focal airspace consolidation. Bones of the chest appear grossly intact. Cholecystectomy clips noted. No pneumoperitoneum on the upright projection. No pneumatosis. Bowel gas pattern is nonobstructive. Stool volume is within normal limits. No urolith or fracture identified. The ribs at T12 are hypoplastic. IMPRESSION: 1. No acute process of the chest. 2. Nonobstructive bowel gas pattern without pneumoperitoneum. The above report was generated using voice recognition software. It may contain grammatical, syntax or spelling errors. Electronically signed by: Omar Dwyer M.D. 09/01/2017 6:40 AM Dictated Date/Time: 09/01/2017 6:38 AM
== END 2017-09-01 03:11 | disposition home or self-care (01) ==
LOC: C.EDB 01:36 → C.EDA 03:11
DX: R10.9 Unspecified abdominal pain (principal); K59.00 Constipation, unspecified; Z87.19 Personal history of other diseases of the digestive system; Z83.79 Family history of other diseases of the digestive system; Z79.3 Long term (current) use of hormonal contraceptives

== ENCOUNTER → 2018-01-13 | Outpatient (CLI) | payer OTHER | END | disposition home or self-care (01) | LOC: C.LAB 11:46 | PROVIDERS: ATTEND Internal Medicine | DX: R93.3 Abnormal findings on diagnostic imaging of other parts of digestive tract (principal); R10.9 Unspecified abdominal pain; K50.00 Crohn's disease of small intestine without complications ==

== ENCOUNTER 2024-08-26 12:26 | Observation (INO) ==
--- NOTE | 2024-08-26 12:47 | Emergency Department Note ---
Impression & Plan Dizziness, Elevated d-dimer, Left to right cardiovascular shunt ED Provider Note CHIEF COMPLAINT: Vomiting, dizziness, medication reaction HISTORY OF PRESENTING ILLNESS: Patient is a 29-year-old female who arrives to the emergency department for evaluation of extreme dizziness, with nausea and vomiting. Patient reports a new IM administered medication for psoriatic arthritis that she administered yesterday. Patient is currently 11 weeks . She reports no vaginal bleeding, pelvic cramping, or vaginal discharge. She states positional dizziness, with shortness of breath, nausea vomiting. She states it was present upon waking this morning, however she felt normal when she went to bed last night. She also reports some chest pressure. She denies cardiac history, however states her mother did pass away from a pulmonary embolus. She reports no history of vertigo. She reports her current headache. She denies unilateral weakness, or difficulty with speech. REVIEW OF SYSTEMS: See HPI for pertinent positives and pertinent negatives. ALLERGIES: See below MEDICATIONS: See below PAST MEDICAL HISTORY: See below PHYSICAL EXAM: VITALS: Vitals are noted on the nurse's note and reviewed by myself. Vital signs stable. GENERAL: 29-year-old female, in no acute distress, nondiaphoretic, well- developed well-nourished. SKIN: The skin was without rashes, erythema, edema, or bruising. HEAD: Normocephalic atraumatic. EYES: Pupils equal round and reactive to light and accommodation. Conjunctivae without injection, sclerae without icterus. Extraocular movements intact. Left-sided horizontal nystagmus present. MOUTH: Mucous membranes moist. No tonsillar hypertrophy. Pharynx without erythema or exudate. Uvula midline. Airway patent. Tongue does not deviate. NECK: Supple without nuchal rigidity. No lymphadenopathy. HEART: Tachycardia with regular rhythm without murmurs gallops or rubs. LUNGS: Clear to auscultation bilaterally without wheezes, rales or rhonchi. No retractions or accessory muscle use. ABDOMEN: Positive bowel sounds x 4. Soft, nontender, without masses or organomegaly. Zimmerman sign negative. No guarding or rebound tenderness. MUSCULOSKELETAL: No muscle atrophy, erythema, or edema noted. Full range of motion without joint tenderness in all extremities. No tenderness to palpation. Normal gait. Strength 5/5 throughout. NEURO: Patient was alert and oriented to person place and time. No focal neurological deficits. NIHSS 0. DIFFERENTIAL DIAGNOSIS: Benign positional vertigo, dehydration, hypovolemia, anemia, tumor, infection, hypoglycemia, electrolyte abnormalities, cardiac sources, intracerebral event, toxicologic, neurologic, as well as other pathologies. ED COURSE AND MEDICAL DECISION MAKING: MEDICATIONS GIVEN: 1 L NSS bolus, 4 mg IV Zofran MONITOR: Continuous equipment monitor phototypesetting: Order was placed for continuous equipment monitor phototypesetting. Patient was placed on the equipment monitor phototypesetting and continuous pulse ox. Patient was noted to be in normal sinus rhythm at an initial rate of 109 bpm per my interpretation. EKG: EKG was interpreted by myself as normal sinus rhythm, at a rate of 85 bpm, with no ST elevation, depression, or ectopy. No previous for comparison. INTERPRETATION OF LABS: I interpreted the labs with full lab results as below in the lab section of this note. Pertinent lab results discussed in the MDM section below. INTERPRETATION OF IMAGING: Imaging studies were interpreted by myself and read by radiology as per the imaging section of this note. MDM SUMMARY: The patient is a pleasant 29-year-old female who arrives to the emergency department for evaluation of the above-stated complaint. A saline lock was established, CBC, CMP, troponin, D-dimer, urinalysis were obtained. CBC shows slight leukocytosis 14.88, with a stable hemoglobin and hematocrit. CMP is unremarkable. Troponin negative, D-dimer 1730. Urinalysis 1+ protein, trace ketones, 2+ blood, 2+ bacteria, patient is asymptomatic. EKG interpreted as above. 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 While it is unlikely this is causing the patient's symptoms, she will need further evaluation, with echo. Patient remains persistently dizzy, which may likely be related to medication administration based on moderate occurrences of this adverse effect. The patient may also need further evaluation for dizziness including advanced imaging. I contacted the [facility] hospitalist group, Claudette Barriga PA-C who with Dr. Martin, agreed to evaluate the patient for admission. Please refer to their documentation for further patient workup and care. DIAGNOSIS: Dizziness The chart was completed utilizing [employer] voice recognition software. Grammatical errors, random word insertions, pronoun errors, and incomplete sentences are an occasional consequence of this system due to software limitations, ambient noise, and hardware issues. Any formal questions or concerns about the content, text, or information contained within the body of this dictation should be directly addressed to the provider for clarification. TREATMENT PLAN/DISCHARGE INSTRUCTIONS: Admit to hospitalist service Past Med/Surg History Problem List (Updated 08/26/24 @ 16:46 by ASTRID Schaefer) Left to right cardiovascular shunt (Acute) Elevated d-dimer (Acute) Dizziness (Acute) Not immune to hepatitis B virus GBS carrier Chlamydia infection affecting Encounter for anatomic survey Previous delivery affecting , antepartum Gestational diabetes mellitus (GDM) affecting , antepartum Obesity affecting , antepartum Medical History Ankylosing spondylitis Psoriatic arthritis Varicella vaccination Sprain, symphysis pubis COVID-19 Constipation Terminal ileitis Biliary dyskinesia Abnormal CT scan, colon History of ectopic History of gastrointestinal ulcer History of appetite changes Irregular bowel habits Surgical History S/P section History of wisdom tooth extraction Nausea and vomiting after administration of anesthetic agent History of cholecystectomy History of colonoscopy Family History Family/Other Family hx of colon cancer Family history of diabetes mellitus Mother Family history of diabetes mellitus Kidney disease Deep vein thrombosis after covid Other No family history of adverse response to anesthesia Social History Smoking Status: Former smoker Tobacco Type: Cigarettes Second Hand Exposure: No; Do You Dip or Chew Tobacco: No; Hx Alcohol Use: No Hx Substance Use: No Preferred Language: Nauruan Communication Ability: Effective Powderman Required: No Beliefs That Will Affect Care: None marital status: Legally marital status details: janae German Marcus (27) Current Living Situation: Family and Significant Other Current Living Situation Comment: lives with fob, children, cats-fob changing litter current occupational status: employed current occupation: [employer] Therapist Feels Safe at Home: Yes Assistive Devices: Contacts and Glasses Allergies Allergies Allergy/AdvReac Type Severity Reaction Status Date / Time No Known Allergies Allergy NONE Verified 08/11/24 09:37 Home Meds Home Medications Medication Instructions Recorded Confirmed vit no.133-ferrous 1 tab PO DAILY 08/11/24 08/26/24 fumarate 28 mg-folic acid 800 mcg tablet () certolizumab pegol 400 mg/2 mL 0 mg subcut UD 08/26/24 08/26/24 (200 mg/mL x2) subcutaneous syringe kit (Cimzia Starter Kit) ondansetron HCl 4 mg tablet 4 mg PO UD PRN Nausea And Vomiting 08/26/24 08/26/24 Results & Data (ED) Vital Signs Vital Signs - 24 hr 08/26/24 12:31 08/26/24 12:50 08/26/24 12:50 Temperature 36.8 C Temperature Source Temporal Artery Scan Pulse Rate 109 H 85 Pulse Rate [Apical] Pulse Rate from SpO2 Sensor Pulse Strength Normal Respiratory Rate 16 Respiratory Effort / Characteristics Non-Labored Spontaneous Respiratory Depth Normal Respiratory Pattern Regular Blood Pressure 126/87 Blood Pressure [Left Arm] Blood Pressure Mean 100 Blood Pressure Mean [Left Arm] Blood Pressure Position Sitting Pulse Oximetry 99 96 Oxygen Delivery Method Room Air Room Air Sepsis Recent Fever Within 48 Hours No Sepsis New/Unexplained Change in Mental Status No Sepsis Action Taken by Nursing No Action Required 08/26/24 13:14 08/26/24 13:33 08/26/24 14:06 Temperature Temperature Source Pulse Rate 105 H Pulse Rate [Apical] 88 Pulse Rate from SpO2 Sensor 80 Pulse Strength Respiratory Rate 18 Respiratory Effort / Characteristics Respiratory Depth Normal Respiratory Pattern Blood Pressure Blood Pressure [Left Arm] 142/97 H Blood Pressure Mean Blood Pressure Mean [Left Arm] 112 Blood Pressure Position Pulse Oximetry 100 100 Oxygen Delivery Method Room Air Sepsis Recent Fever Within 48 Hours Sepsis New/Unexplained Change in Mental Status Sepsis Action Taken by [facility] Medications Current Medication List: was personally reviewed by me Laboratory Data Attestation: I reviewed the patient's lab results. 08/26/24 13:02 08/26/24 13:02 Lab Results 08/26/24 Range/Units 13:02 WBC 14.88 H (4.8-10.8) K/ul RBC 4.75 (4.20-5.40) M/uL Hgb 14.9 (12.0-16.0) g/dl Hct 43.0 (37.0-47.0) % MCV 90.5 (80.0-100.0) fL MCH 31.4 (25.0-34.0) pg MCHC 34.7 (32.0-36.0) g/dL RDW Std Deviation 41.0 (36.4-46.3) fL RDW Coeff of Kemi 12.4 (11.5-14.5) % Plt Count 272 (130-400) K/uL MPV 10.3 (9.4-12.4) fL Immature Gran % (Auto) 0.5 % Neut % (Auto) 83.0 % Lymph % (Auto) 11.9 % Bucks % (Auto) 4.2 % Eos % (Auto) 0.2 % Baso % (Auto) 0.2 % Neut # (Auto) 12.34 H (1.40-6.50) K/uL Lymph # (Auto) 1.77 (1.20-3.40) K/uL Bucks # (Auto) 0.63 H (0.11-0.59) K/uL Eos # (Auto) 0.03 (0.00-0.50) K/uL Baso # (Auto) 0.03 (0.00-0.20) K/uL Immature Gran # (Auto) 0.08 (0.01-0.20) K/uL PT 10.3 (9.0-12.0) Seconds INR 0.9 (0.9-1.1) APTT 24 (21-31) Seconds PTT Ratio 0.9 D-Dimer 1730 H* (0-500) ug/L FEU Sodium 137 (136-145) mmol/L Potassium 3.8 (3.5-5.1) mmol/L Chloride 104 (98-107) mmol/L Carbon Dioxide 25 (21-32) mmol/L Anion Gap 8 (3-11) BUN 7 (6-23) mg/dl Creatinine 0.53 L (0.6-1.2) mg/dl Est Cr Clr Drug Dosing 198.7 ml/min eGFR 129.11 BUN/Creatinine Ratio 13.2 (10-20) Glucose 93 (70-99(Fasting)) mg/dl Calcium 8.8 (8.6-10.3) mg/dl Total Bilirubin 0.7 (0.2-1.0) mg/dl AST 17 (13-39) U/L ALT 17 (7-52) U/L Alkaline Phosphatase 57 (34-104) U/L Troponin I High Sens 2.5 (0-14) pg/ml Total Protein 6.8 (6.0-8.3) gm/dl Albumin 3.8 (3.4-5.0) gm/dl Globulin 3.0 (2.5-4.0) gm/dl Albumin/Globulin Ratio 1.3 (0.9-2) Urine Color Dark Yellow Urine Appearance Turbid A (Clear) Urine pH 5.0 (4.5-7.5) Ur Specific [place] 1.033 H (1.000-1.030) Urine Protein 1+ H (Negative) Urine Glucose (UA) Negative (Negative) Urine Ketones Trace H (Negative) Urine Blood 2+ H (Negative) Urine Nitrite Negative (Negative) Urine Bilirubin Negative (Negative) Urine Urobilinogen Negative (Negative) Ur Leukocyte Esterase Negative (Negative) Urine WBC (Auto) 0-5 (0-5) /hpf Urine RBC (Auto) 3-5 H (0-2) /hpf U Hyaline Cast (Auto) 0-2 (0-2) /lpf U Epithel Cells (Auto) 6-10 H (0-2) /hpf Urine Bacteria (Auto) 2+ H (None Seen) Urine Mucus Present A (None Prsent) Administered Medications Discontinued Medications Sodium Chloride (Nss) 1,000 mls @ 999 mls/hr IV .Q1H1M ONE Stop: 08/26/24 13:37 Last Infusion: 08/26/24 15:13 Dose: Infused Documented By: Admin: 08/26/24 13:10 Dose: 999 mls/hr Documented By: ESTIVEN Ioversol (Optiray 320 125ml) 115 ml IV ONCE ONE Stop: 08/26/24 14:24 Last Admin: 08/26/24 14:23 Dose: 115 ml Documented By: ARISTEO Ondansetron HCl (Ondansetron Inj 2 Mg/Ml 2 Ml Vial) 4 mg IV NOW STA Stop: 08/26/24 12:38 Last Admin: 08/26/24 13:10 Dose: 4 mg Documented By: ESTIVEN Imaging Data Attestation: I personally reviewed and interpreted this imaging study as follows: Radiologist's Impression: Head CT 08/26/24 13:12 CT head/brain wo con CLINICAL HISTORY: 29 years-old Female with dizzy. Acute dizziness TECHNIQUE: Multiple axial CT images of the head were obtained without contrast. A dose lowering technique was utilized adhering to the principles of ALARA. COMPARISON: None. FINDINGS: No acute intracranial hemorrhage, midline shift, intracranial mass, hydrocephalus, territorial ischemia or abnormal extra-axial collection. The calvarium is intact. The paranasal sinuses, mastoid air cells, and middle ear cavities are clear. IMPRESSION: No acute intracranial abnormality. ACT 112: Negative or not required by law. The above report was generated using voice recognition software. It may contain grammatical, syntax or spelling errors. Electronically signed by: Ray Dwyer M.D. 08/26/2024 2:34 PM Chest CTA 08/26/24 14:07 CT ANGIOGRAM OF THE CHEST CLINICAL HISTORY: Shortness of breath. . COMPARISON STUDY: Chest radiograph September 01, 2017. TECHNIQUE: Following the IV administration of 115 cc of Optiray 320, CT angiogram of the chest was performed from the upper abdomen to the thoracic inlet utilizing the pulmonary embolus protocol. Images are reviewed in the axial, sagittal, and coronal planes. 3-D MIPS images are created and assessed. IV contrast was administered without complication. A dose lowering technique was utilized adhering to the principles of ALARA. CT DOSE: 1514.6 mGy.cm FINDINGS: Thyroid: Unremarkable. Thoracic aorta: The caliber of the thoracic aorta is normal. No dissection is seen. Pulmonary vasculature: The caliber of the pulmonary trunk is normal. There are no filling defects identified in main, lobar, or segmental pulmonary branches to suggest pulmonary embolus. Subsegmental pulmonary arteries are suboptimally assessed due to mild respiratory motion. Incidental note is made of partial anomalous pulmonary venous return. The left upper lobe drains into the left brachiocephalic vein. Heart: The size of the heart is normal. There is no pericardial effusion. Lungs and pleural spaces: The lungs and pleural spaces are clear. Mediastinum: There is no mediastinal lymphadenopathy. Lydia: There is no hilar adenopathy. Axillae: There is no axillary lymphadenopathy. Upper abdomen: Visualized portions of the upper abdomen are unremarkable. Skeletal structures: No lytic or blastic bony lesions are seen. IMPRESSION: 1. No pulmonary emboli identified although subsegmental vessels suboptimally assessed due to mild motion artifact. 2. No acute intrathoracic findings. 3. 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 This represents a left to right shunt. ACT 112: Negative or not required by law. Electronically signed by: Richard Castillo M.D. 08/26/2024 2:49 PM Discharge Plan Visit Data Chief Complaint: Vomiting Stated Complaint: DIZZINESS, VOMIT 11/2 WKS PG. NEW MED HEADACHE ED Provider: Barry Vigil ED Midlevel Provider: Marybeth Tobar Discharge Problem: Dizziness, Elevated d-dimer, Left to right cardiovascular shunt Forms Stand Alone Forms: [facility] [employer] Prescriptions Prescriptions: No Action Cimzia Starter Kit 400 mg/2 mL (200 mg/mL x 2) syringe kit 0 mg SUBCUT UD ondansetron HCl 4 mg tablet 4 mg PO UD PRN (Reason: Nausea And Vomiting) 28-800 mg-mcg Tablet 1 tab PO DAILY Referrals Referrals: Renu Pizano DO [Primary Care Provider] -
[2024-08-26] MEDS: SODIUM CHLORIDE 0.9% 1,000 ML IV ONE (13:10)
[2024-08-26] MEDS: ONDANSETRON INJ 2 MG/ML 2 ML VIAL IV STA (13:10)
[2024-08-26 13:32] LABS: Basophils # (auto) 0.03 K/uL (0.00-0.20); Basophils % (auto) 0.2 %; Eosinophils # (auto) 0.03 K/uL (0.00-0.50); Eosinophils % (auto) 0.2 %; Hemoglobin 14.9 g/dl (12.0-16.0); Immature Granulocytes # (auto) 0.08 K/uL (0.01-0.20); Immature Granulocytes % (auto) 0.5 %; Lymphocytes # (auto) 1.77 K/uL (1.20-3.40); Lymphocytes % (auto) 11.9 %; Mean Corpuscular Hemoglobin 31.4 pg (25.0-34.0); Mean Corpuscular Hgb Conc 34.7 g/dL (32.0-36.0); Mean Corpuscular Volume 90.5 fL (80.0-100.0); Mean Platelet Volume 10.3 fL (9.4-12.4); Monocytes # (auto) 0.63 K/uL (0.11-0.59); Monocytes % (auto) 4.2 %; Neutrophils # (auto) 12.34 K/uL (1.40-6.50); Platelet Count 272 K/uL (130-400); RDW Coefficient of Variation 12.4 % (11.5-14.5); Red Blood Count 4.75 M/uL (4.20-5.40); White Blood Count 14.88 K/ul (4.8-10.8)
[2024-08-26 13:50] LABS: Albumin Globulin Ratio 1.3 (0.9-2); Albumin Level 3.8 gm/dl (3.4-5.0); BUN Creatinine Ratio 13.2 (10-20); Bilirubin,Total 0.7 mg/dl (0.2-1.0); Calcium 8.8 mg/dl (8.6-10.3); Creatinine Clr Calc Pharmacy 198.7 ml/min; Potassium 3.8 mmol/L (3.5-5.1); Total Protein 6.8 gm/dl (6.0-8.3)
[2024-08-26 13:57] LABS: Troponin I High Sensitivity 2.5 pg/ml (0-14)
[2024-08-26 13:59] LABS: INR 0.9 (0.9-1.1); Partial Thromboplastin Ratio 0.9; Partial Thromboplastin Time 24 Seconds (21-31); Prothrombin Time 10.3 Seconds (9.0-12.0)
[2024-08-26 14:07] LABS: D Dimer 1730 ug/L FEU (0-500)
[2024-08-26] MEDS: OPTIRAY 320 125ml IV ONE (14:23)
[2024-08-26 14:34] LABS: Appearance Urine Turbid (Clear); Bacteria Urine Automated 2+ (None Seen); Bilirubin Urine Negative (Negative); Blood Urine 2+ (Negative); Color Urine Dark Yellow; Glucose Urine UA Negative (Negative); Ketones Urine Trace (Negative); Leukocyte Esterase Urine Negative (Negative); Nitrite Urine Negative (Negative); Protein Urine 1+ (Negative); Specific Gravity Urine 1.033 (1.000-1.030); Urobilinogen Urine Negative (Negative); WBC Urine Automated 0-5 /hpf (0-5)
--- NOTE | 2024-08-26 14:36 | CT Scan Report ---
CT head/brain wo con CLINICAL HISTORY: 29 years-old Female with dizzy. Acute dizziness TECHNIQUE: Multiple axial CT images of the head were obtained without contrast. A dose lowering tech nique was utilized adhering to the principles of ALARA. COMPARISON: None. FINDINGS: No acute intracranial hemorrhage, midline shift, intracranial mass, hydrocephalus, territorial ischem ia or abnormal extra-axial collection. The calvarium is intact. The paranasal sinuses, mastoid air cells, and middle ear cavities are clear . IMPRESSION: No acute intracranial abnormality. ACT 112: Negative or not required by law. The above report was generated using voice recognition software. It may contain grammatical, syntax o r spelling errors. Electronically signed by: Ray Dwyer M.D. 08/26/2024 2:34 PM
[2024-08-26 14:38] LABS: Cast Urine Automated 0-2 /lpf (0-2); Mucus Urine Present (None Prsent)
--- NOTE | 2024-08-26 14:40 | Electrocardiogram Report ---
Test Reason : Blood Pressure : */* mmHG Vent. Rate : 85 BPM Atrial Rate : 85 BPM P-R Int : 136 ms QRS Dur : 88 ms QT Int : 342 ms P-R-T Axes : 66 20 61 degrees QTcB Int : 406 ms Normal sinus rhythm with sinus arrhythmia Normal ECG No previous ECGs available Confirmed by Nikolai Campos ([id number]) on 08/26/2024 2:40:10 PM Referred By: Confirmed By: Nikolai Campos
--- NOTE | 2024-08-26 14:50 | CT Scan Report ---
CT ANGIOGRAM OF THE CHEST CLINICAL HISTORY: Shortness of breath. . COMPARISON STUDY: Chest radiograph September 01, 2017. TECHNIQUE: Following the IV administration of 115 cc of Optiray 320, CT angiogram of the chest was pe rformed from the upper abdomen to the thoracic inlet utilizing the pulmonary embolus protocol. Images are reviewed in the axial, sagittal, and coronal planes. 3-D MIPS images are created and assessed. I V contrast was administered without complication. A dose lowering technique was utilized adhering to the principles of ALARA. CT DOSE: 1514.6 mGy.cm FINDINGS: Thyroid: Unremarkable. Thoracic aorta: The caliber of the thoracic aorta is normal. No dissection is seen. Pulmonary vasculature: The caliber of the pulmonary trunk is normal. There are no filling defects ivy ntified in main, lobar, or segmental pulmonary branches to suggest pulmonary embolus. Subsegmental pu lmonary arteries are suboptimally assessed due to mild respiratory motion. Incidental note is made of partial anomalous pulmonary venous return. The left upper lobe drains into the left brachiocephalic vein. Heart: The size of the heart is normal. There is no pericardial effusion. Lungs and pleural spaces: The lungs and pleural spaces are clear. Mediastinum: There is no mediastinal lymphadenopathy. Lydia: There is no hilar adenopathy. Axillae: There is no axillary lymphadenopathy. Upper abdomen: Visualized portions of the upper abdomen are unremarkable. Skeletal structures: No lytic or blastic bony lesions are seen. IMPRESSION: 1. No pulmonary emboli identified although subsegmental vessels suboptimally assessed due to mild mot ion artifact. 2. No acute intrathoracic findings. 3. Partial anomalous pulmonary venous return with the left upper lobe draining into the left brachioc ephalic vein. This represents a left to right shunt. ACT 112: Negative or not required by law. Electronically signed by: Richard Castillo M.D. 08/26/2024 2:49 PM
[2024-08-26] MEDS: ACETAMINOPHEN 500 MG TAB PO STA (17:08)
[2024-08-26] MEDS: SODIUM CHLORIDE 0.9% 1,000 ML IV SCH (17:08)
--- NOTE | 2024-08-26 17:25 | History & Physical Report ---
Date of Service August 26, 2024 Assessment & Plan (1) BPPV (benign paroxysmal positional vertigo): (2) Adverse drug reaction: (3) 11 weeks gestation of : Plan This is a 29 yr old F who has a significant PMH of psoriatic arthritis, obesity, HLD, migraine, GERD and currently 11 weeks who presents to ED 2/2 ill feeling x 1 day. Pt started need immunotherapy for psoriatic arthritis, Cimzia, yesterday. Shortly after starting she developed worsened nausea, vomiting, dizziness, CHOU and abd cramping that has persisted through today. Given hx of known she came in for evaluation. ED ordered D-dimer which was 1,800 and therefore CTA chest. 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 This represents a left to right shunt. 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 This represents a left to right shunt. obtain echocardiogram in a.m. with bubble consider cardiology consult vs OP work up based on findings #Elevated d dimer likely 2/2 hx of PE/DVT in family obtain b/l venous Doppler #Abdominal cramping #[address] Hutchins OB for routine OB eval pt denies vaginal bleeding/leakage of fluid #Abnormal UA pt with protein, blood and bacturia recently tx with keflex for UTI await urine culture as pt currently asymptomatic repeat UA in a.m. after hydration #DVT ppx: encourage ambulation at tolerated FULL CODE PCP: Dr. Renu Pizano Dispo: admit under obs, likely d/c tomorrow after work up Pt was seen and examined in collaboration with Dr. Martin, please see addendum I spent a total of 76 minutes coordinating, documenting and providing care for this patient excluding time spent in the performance of separately billed services or time spent by another provider/QHP. History of Present Illness Chief Complaint: Ill feeling x 1 day. Primary Care Provider: Renu Pizano DO This is a 29 yr old F who has a significant PMH of psoriatic arthritis, obesity, HLD, migraine, GERD and currently 11 weeks who presents to ED 2/2 ill feeling x 1 day. She follows with Dr. Kaufman for rheumatology. She was recently started on Cimzia for her PA and . Her 1st inj was last night. Shortly after the injection she got significantly more nauseated than her normal nausea, MODI, dizziness and had vomiting. She went to bed thinking she would feel better in the morning. As she progressed throughout work today she became more and more ill feeling with nausea and vomiting. Her eyes became blood shot and her one coworker thought they were yellow. She communicated to her skiver heel tap who recommended she be seen in ED for further evaluation given the fact she is also . She further complains of lower abd cramping that has been present all day. She denies any vaginal bleeding or discharge. She states nothing makes this worse. She reports the dizziness has been an on going thing. It is worse with quick head movements. It seems to be worse since taking the Cimzia. The is also accompanied with worsening nausea and vomiting. She reports some sinus congestion. Her boyfriend at bedside has been having a cough. She denies documented f/c/s, chest pain, sob at rest, hemoptysis, dysuria, increased urg/freq with urination. She currently has been constipated. She does report some CHOU and lower ext swelling. Hx obtained from boyfriend at bedside and pt along with external chart review. In ED pt was hemodynamically stable. Her BP was adequate. Her LFTS were normal. 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 This represents a left to right shunt. She had a CT head which was unremarkable. She will be admitted for further observation and echocardiogram. Recently had UTI and treated with keflex. Also had norovirus in July. Allergies Allergy/AdvReac Type Severity Reaction Status Date / Time No Known Allergies Allergy NONE Verified 08/11/24 09:37 Home Medications Medication Instructions Recorded Confirmed Type vit no.133-ferrous 1 tab PO DAILY 08/11/24 08/26/24 History fumarate 28 mg-folic acid 800 mcg tablet () certolizumab pegol 400 mg/2 mL 0 mg subcut UD 08/26/24 08/26/24 History (200 mg/mL x2) subcutaneous syringe kit (Cimzia Starter Kit) ondansetron HCl 4 mg tablet 4 mg PO UD PRN Nausea And Vomiting 08/26/24 08/26/24 History Past Med/Surg History Problem List (Updated 08/26/24 @ 18:20 by Claudette Barriga PA-C) 11 weeks gestation of Adverse drug reaction BPPV (benign paroxysmal positional vertigo) Left to right cardiovascular shunt (Acute) Elevated d-dimer (Acute) Dizziness (Acute) Not immune to hepatitis B virus GBS carrier Chlamydia infection affecting Encounter for anatomic survey Previous delivery affecting , antepartum Gestational diabetes mellitus (GDM) affecting , antepartum Obesity affecting , antepartum Medical History Ankylosing spondylitis Psoriatic arthritis Varicella vaccination Sprain, symphysis pubis COVID-19 Constipation Terminal ileitis Biliary dyskinesia Abnormal CT scan, colon History of ectopic History of gastrointestinal ulcer History of appetite changes Irregular bowel habits Surgical History S/P section History of wisdom tooth extraction Nausea and vomiting after administration of anesthetic agent History of cholecystectomy History of colonoscopy Family History Family/Other Family hx of colon cancer Family history of diabetes mellitus Mother Family history of diabetes mellitus Kidney disease Deep vein thrombosis after covid Other No family history of adverse response to anesthesia Social History Smoking Status: Never smoker Tobacco Type: Cigarettes Second Hand Exposure: No; Do You Dip or Chew Tobacco: No; Hx Alcohol Use: No Hx Substance Use: No Preferred Language: Hungarian Communication Ability: Effective Yarder Boss Required: No Beliefs That Will Affect Care: None marital status: Legally marital status details: janae Velazquez (27) Current Living Situation: Family Current Living Situation Comment: home with boyfriend and 3 kids 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 Safe at Home: Yes Assistive Devices: Contacts and Glasses Review of Systems Review of Systems: All systems reviewed & are unremarkable except as noted in HPI & below Physical Exam Physical Exam: constitutional: WD/WN, vitals as above, NAD, sitting up in bed, pleasant, conversing easily Head: Normocephalic, Atraumatic Eyes: PERRL, conjunctivae normal, anicteric sclerae ENMT: external ear and nose normal, oropharynx normal , Internal aud canal clear, TMS WNL bl Neck: trachea midline, no thyromegaly normal visual inspection Respiratory: normal respiratory effort, lungs clear to auscultation, no wheeze, rales, rhonchi. Normal insp/exp effort, no accessory muscle use Cardiovascular: RRR, no murmur, no edema Vessels: no JVD or carotid bruit Chest: normal inspection of chest Abdomen: obese, normal bowel sounds, soft, nontender, no hepatosplenomegaly Musculoskeletal: no cyanosis or clubbing, AROM x4 Skin: +psoriasis patches on extensor arm surfaces, chin, no rashes, warm and dry normal turgor Neurologic: + exac of dizziness with EOMI and quick head movements, PERRL, EOMI, accommodation nl, no face palsy, no dysarthria CN's II-XI intact bilaterally and moves all extremities Psychiatric: A+Ox3, euthymic affect : deferred Results & Data Results & Data Vital Signs (Past 12 Hours) Vital Signs Temp Pulse Pulse Resp BP BP Pulse Ox 08/26/24 16:30 89 24 125/74 97 08/26/24 16:00 85 19 108/79 100 08/26/24 15:30 91 H 22 116/72 99 08/26/24 15:17 118/77 08/26/24 14:06 100 08/26/24 13:33 88 18 142/97 H 100 08/26/24 13:14 105 H 08/26/24 12:50 85 96 08/26/24 12:50 08/26/24 12:31 36.8 C 109 H 16 126/87 99 O2 Del Method 08/26/24 16:30 Room Air 08/26/24 16:00 Room Air 08/26/24 15:30 Room Air 08/26/24 15:17 08/26/24 14:06 Room Air 08/26/24 13:33 08/26/24 13:14 08/26/24 12:50 08/26/24 12:50 Room Air 08/26/24 12:31 Room Air Laboratory Results I have independently reviewed and interpreted patient's admitting labs including CBC, CMP, PTT, PT/INR, mag, UA and troponin. Diagnostic Findings Head CT 08/26/24 13:12 CT head/brain wo con CLINICAL HISTORY: 29 years-old Female with dizzy. Acute dizziness TECHNIQUE: Multiple axial CT images of the head were obtained without contrast. A dose lowering technique was utilized adhering to the principles of ALARA. COMPARISON: None. FINDINGS: No acute intracranial hemorrhage, midline shift, intracranial mass, hydrocephalus, territorial ischemia or abnormal extra-axial collection. The calvarium is intact. The paranasal sinuses, mastoid air cells, and middle ear cavities are clear. IMPRESSION: No acute intracranial abnormality. ACT 112: Negative or not required by law. The above report was generated using voice recognition software. It may contain grammatical, syntax or spelling errors. Electronically signed by: Ray Dwyer M.D. 08/26/2024 2:34 PM Chest CTA 08/26/24 14:07 CT ANGIOGRAM OF THE CHEST CLINICAL HISTORY: Shortness of breath. . COMPARISON STUDY: Chest radiograph September 01, 2017. TECHNIQUE: Following the IV administration of 115 cc of Optiray 320, CT angiogram of the chest was performed from the upper abdomen to the thoracic inlet utilizing the pulmonary embolus protocol. Images are reviewed in the axial, sagittal, and coronal planes. 3-D MIPS images are created and assessed. IV contrast was administered without complication. A dose lowering technique was utilized adhering to the principles of ALARA. CT DOSE: 1514.6 mGy.cm FINDINGS: Thyroid: Unremarkable. Thoracic aorta: The caliber of the thoracic aorta is normal. No dissection is seen. Pulmonary vasculature: The caliber of the pulmonary trunk is normal. There are no filling defects identified in main, lobar, or segmental pulmonary branches to suggest pulmonary embolus. Subsegmental pulmonary arteries are suboptimally assessed due to mild respiratory motion. Incidental note is made of partial anomalous pulmonary venous return. The left upper lobe drains into the left brachiocephalic vein. Heart: The size of the heart is normal. There is no pericardial effusion. Lungs and pleural spaces: The lungs and pleural spaces are clear. Mediastinum: There is no mediastinal lymphadenopathy. Lydia: There is no hilar adenopathy. Axillae: There is no axillary lymphadenopathy. Upper abdomen: Visualized portions of the upper abdomen are unremarkable. Skeletal structures: No lytic or blastic bony lesions are seen. IMPRESSION: 1. No pulmonary emboli identified although subsegmental vessels suboptimally assessed due to mild motion artifact. 2. No acute intrathoracic findings. 3. 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 This represents a left to right shunt. ACT 112: Negative or not required by law. Electronically signed by: Richard Castillo M.D. 08/26/2024 2:49 PM Medications Administered Medication List Sodium Chloride (Nss) 1,000 mls @ 125 mls/hr IV .Q8H BRADNEE Stop: 08/27/24 08:59 Last Admin: 08/26/24 17:08 Dose: 125 mls/hr Documented By: ILDA Discontinued Medications Acetaminophen (Acetaminophen 500 Mg Tab) 500 mg PO NOW STA Stop: 08/26/24 16:58 Last Admin: 08/26/24 17:08 Dose: 500 mg Documented By: ILDA Sodium Chloride (Nss) 1,000 mls @ 999 mls/hr IV .Q1H1M ONE Stop: 08/26/24 13:37 Last Infusion: 08/26/24 15:13 Dose: Infused Documented By: Admin: 08/26/24 13:10 Dose: 999 mls/hr Documented By: ESTIVEN Ioversol (Optiray 320 125ml) 115 ml IV ONCE ONE Stop: 08/26/24 14:24 Last Admin: 08/26/24 14:23 Dose: 115 ml Documented By: ARISTEO Ondansetron HCl (Ondansetron Inj 2 Mg/Ml 2 Ml Vial) 4 mg IV NOW STA Stop: 08/26/24 12:38 Last Admin: 08/26/24 13:10 Dose: 4 mg Documented By: BK COVID-19 Results Results COVID-19 Adm Lab Results: RBC 3.73 M/uL (4.20-5.40) L 08/27/24 WBC 9.40 K/ul (4.8-10.8) 08/27/24 Hgb 11.8 g/dl (12.0-16.0) L 08/27/24 Hct 34.6 % (37.0-47.0) L 08/27/24 Plt Count 216 K/uL (130-400) 08/27/24 Neutrophils (%) (Auto) 65.8 % 08/27/24 Lymphocytes (%) (Auto) 26.7 % 08/27/24 Monocytes # (Auto) 0.54 K/uL (0.11-0.59) 08/27/24 Eosinophils # (Auto) 0.08 K/uL (0.00-0.50) 08/27/24 Immature Granulocyte % (Auto) 0.6 % 08/27/24 Neutrophils # (Auto) 6.18 K/uL (1.40-6.50) 08/27/24 Lymphocytes # (Auto) 2.51 K/uL (1.20-3.40) 08/27/24 Monocytes # (Auto) 0.54 K/uL (0.11-0.59) 08/27/24 Eosinophils # (Auto) 0.08 K/uL (0.00-0.50) 08/27/24 Basophils # (Auto) 0.03 K/uL (0.00-0.20) 08/27/24 Immature Granulocyte # (Auto) 0.06 K/uL (0.01-0.20) 5 Na 137 mmol/L (136-145) 08/27/24 K 3.6 mmol/L (3.5-5.1) 08/27/24 Cl 110 mmol/L (98-107) H 08/27/24 CO2 23 mmol/L (21-32) 08/27/24 Anion Gap 4 (3-11) 08/27/24 BUN 5 mg/dl (6-23) L 08/27/24 Creatinine 0.49 mg/dl (0.6-1.2) L 08/27/24 BUN/Creatinine Ratio 10.2 (10-20) 08/27/24 Glucose Level 86 mg/dl (70-99(Fasting)) 08/27/24 Ca 7.5 mg/dl (8.6-10.3) L 08/27/24 Total Bilirubin 0.7 mg/dl (0.2-1.0) 08/26/24 AST/SGOT 17 U/L (13-39) 08/26/24 ALT/SGPT 17 U/L (7-52) 08/26/24 Alkaline Phosphatase 57 U/L (34-104) 08/26/24 Total Protein 6.8 gm/dl (6.0-8.3) 08/26/24 Albumin 3.8 gm/dl (3.4-5.0) 08/26/24 Globulin 3.0 gm/dl (2.5-4.0) 08/26/24 Albumin/Globulin Ratio 1.3 (0.9-2) 08/26/24 D-Dimer 1730 ug/L FEU (0-500) H* 08/26/24 PTT 24 Seconds (21-31) 08/26/24 INR 0.9 (0.9-1.1) 08/26/24 Adenovirus (PCR) Not Detected (NotDetected) 08/26/24 B. parapertussis DNA (PCR) Not Detected (NotDetected) 08/17 B. pertussis DNA (PCR) Not Detected (NotDetected) 08/26/24 C. pneumoniae DNA (PCR) Not Detected (NotDetected) 5 Coronavirus Type OC43 (PCR) Not Detected (NotDetected) 08/17 Coronavirus Type HKU1 (PCR) Not Detected (NotDetected) 08/17 Coronavirus Type 229E (PCR) Not Detected (NotDetected) 08/17 COVID-19 PCR Not Detected (NotDetected) 08/26/24 Coronavirus Type NL63 (PCR) Not Detected (NotDetected) 08/17 Human Metapneumovirus (PCR) Not Detected (NotDetected) 08/17 Influenza Virus Type A (PCR) Not Detected (NotDetected) Influenza Virus Type B (PCR) Not Detected (NotDetected) M. pneumoniae (PCR) Not Detected (NotDetected) 08/26/24 Parainfluenza Type 1 (PCR) Not Detected (NotDetected) 08/17 Parainfluenza Type 2 (PCR) Not Detected (NotDetected) 08/17 Parainfluenza Type 3 (PCR) Not Detected (NotDetected) 08/17 Parainfluenza Type 4 (PCR) Not Detected (NotDetected) 08/17 RSV (PCR) Not Detected (NotDetected) 08/26/24 Enterovirus/Rhinovirus (PCR) Not Detected (NotDetected) Code Status & VTE Plan Code Status FULL CODE VTE Prophylaxis Plan VTE Prophylaxis will be ordered: No Reason for no VTE drug order: Treatment not indicated Supervising Physician Co-Signing Physician Notes Pt was seen and examined by myself, Grace Martin MD on the day of service. Care was coordinated with Claudette Barriga PA-C. 29yoF with PMHx significant for current state (11weeks gestation) and psoriatic arthritis with recent use of new medication cimzia (Certolizumab pegol), a TNF inhibitor. She presented with N/V, body aches, dizziness, SOB and abdominal cramping. At the time of my exam was comfortable, in no acute distress eating food noting that the zofran given in the ED had helped. Hold cimzia, follow up with skiver heel tap. CTA chest noting a possible shunt and likely congenital changes, echo ordered OB on board while hospitalized Otherwise as above. I spent a total [id number] coordinating, documenting, and providing care for this patient excluding time spent in the performance of separately billed services
[2024-08-26 18:19] LABS: Adenovirus PCR Not Detected (NotDetected); Bordetella parapertussis PCR Not Detected (NotDetected); Bordetella pertussis PCR Not Detected (NotDetected); Chlamydia pneumoniae PCR Not Detected (NotDetected); Coronavirus 229E PCR Not Detected (NotDetected); Coronavirus CoV-2 (COVID19)PCR Not Detected (NotDetected); Coronavirus HKU1 PCR Not Detected (NotDetected); Coronavirus NL63 PCR Not Detected (NotDetected); Coronavirus OC43PCR Not Detected (NotDetected); Human Metapneumovirus PCR Not Detected (NotDetected); Influenza A PCR Not Detected (NotDetected); Influenza B PCR Not Detected (NotDetected); Mycoplasma pneumoniae PCR Not Detected (NotDetected); Parainfluenza Virus 1 PCR Not Detected (NotDetected); Parainfluenza Virus 2 PCR Not Detected (NotDetected); Parainfluenza Virus 3 PCR Not Detected (NotDetected); Parainfluenza Virus 4 PCR Not Detected (NotDetected); Respiratory Syncytial VirusPCR Not Detected (NotDetected); Rhinovirus/Enterovirus PCR Not Detected (NotDetected)
--- NOTE | 2024-08-26 19:12 | OB/GYN Consultation ---
Date of Consultation August 26, 2024 Assessment & Plan (1) 11 weeks gestation of : Alma Delia is a 29-year-old G4, P2 currently 11 weeks 3 days gestational age presenting to the ED and is being managed by the medicine service. Consult requested secondary to pelvic cramping. Patient is reporting lower pelvic cramping menstrual-like in nature. Normal heart rate noted on ultrasound and overall globally normal-appearing bedside ultrasound noted. Discussed with Alma Delia that the cramps that she is experience is referred to is uterine irritability and as part of normal uterine growth. Discussed that this can be improved with staying well-hydrated although will likely continue intermittently throughout the . Reassuring findings noted on ultrasound which were discussed with Alma Delia. No further obstetric care necessary at this time. Discussed if she was having bright red bleeding with a flow to please let us know but otherwise will plan for outpatient care as scheduled. (2) Cramping affecting , antepartum: History of Present Illness History of Present Illness Alma Delia is a 29-year-old G4, P2 currently at 11 weeks 3 days gestational age. Patient is being admitted by the medicine service requested consult due to pelvic cramping. Patient is reporting lower pelvic cramping which she describes as menstrual type cramping that has been intermittent over the past day or 2. Denying any bleeding or distinct pelvic pain. Bedside ultrasound noted a normal heart rate. Allergies Allergy/AdvReac Type Severity Reaction Status Date / Time No Known Allergies Allergy NONE Verified 08/11/24 09:37 Home Medications Medication Instructions Recorded Confirmed Type vit no.133-ferrous 1 tab PO DAILY 08/11/24 08/26/24 History fumarate 28 mg-folic acid 800 mcg tablet () certolizumab pegol 400 mg/2 mL 0 mg subcut UD 08/26/24 08/26/24 History (200 mg/mL x2) subcutaneous syringe kit (Cimzia Starter Kit) ondansetron HCl 4 mg tablet 4 mg PO UD PRN Nausea And Vomiting 08/26/24 08/26/24 History Patient History Medical History Ankylosing spondylitis Psoriatic arthritis Varicella vaccination Sprain, symphysis pubis COVID-19 Constipation Terminal ileitis Biliary dyskinesia Abnormal CT scan, colon History of ectopic History of gastrointestinal ulcer History of appetite changes Irregular bowel habits Surgical History S/P section History of wisdom tooth extraction Nausea and vomiting after administration of anesthetic agent History of cholecystectomy History of colonoscopy Family History Family/Other Family hx of colon cancer Family history of diabetes mellitus Mother Family history of diabetes mellitus Kidney disease Deep vein thrombosis after covid Other No family history of adverse response to anesthesia Social History Smoking Status: Former smoker Tobacco Type: Cigarettes Second Hand Exposure: No; Do You Dip or Chew Tobacco: No; Hx Alcohol Use: No Hx Substance Use: No Preferred Language: Yoruba Communication Ability: Effective Track Car Operator Required: No Beliefs That Will Affect Care: None marital status: Legally marital status details: janae Velazquez (27) Current Living Situation: Family and Significant Other Current Living Situation Comment: lives with fob, children, cats-fob changing litter 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 Results & Data Vital Signs (Past 12 Hours) Vital Signs Temp Pulse Pulse Resp BP BP Pulse Ox 08/26/24 17:42 92 H 08/26/24 17:00 93 H 18 126/87 96 08/26/24 16:30 89 24 125/74 97 08/26/24 16:00 85 19 108/79 100 08/26/24 15:30 91 H 22 116/72 99 08/26/24 15:17 118/77 08/26/24 14:06 100 08/26/24 13:33 88 18 142/97 H 100 08/26/24 13:14 105 H 08/26/24 12:50 85 96 08/26/24 12:50 08/26/24 12:31 36.8 C 109 H 16 126/87 99 O2 Del Method 08/26/24 17:42 08/26/24 17:00 Room Air 08/26/24 16:30 Room Air 08/26/24 16:00 Room Air 08/26/24 15:30 Room Air 08/26/24 15:17 08/26/24 14:06 Room Air 08/26/24 13:33 08/26/24 13:14 08/26/24 12:50 08/26/24 12:50 Room Air 08/26/24 12:31 Room Air PG Care Time/CCT Total # of Minutes Spent Total Time Spent with Patient: Total time spent is greater than 50% in coordination of care (as documented) at patient's floor/unit and/or counseling patient: Coding Level of Care Code 45480 IN/OBS CONSULT LVL 2,35M Diagnoses 11 weeks gestation of Z3A.11 Cramping affecting , antepartum O26.899; R10.9
--- NOTE | 2024-08-26 19:12 | Ultrasound Report ---
Clinical History: Elevated d-dimer Technique: Venous ultrasound evaluation was performed utilizing grayscale, color Doppler and wave form evaluation. Images were also obtained with and without compression Findings: The bilateral common femoral, superficial femoral, popliteal, and visualized calf veins demonstrate normal anechoic lumens with full compressibility. Normal flow is seen on color Doppler images. Expected waveforms were produced with augmentation maneuvers Impression: No evidence of deep venous thrombosis Electronically signed by Jimbo Wolfe 08-26-2024 7:11 PM
[2024-08-26] MEDS: ONDANSETRON INJ 2 MG/ML 2 ML VIAL IV PRN (20:32)
[2024-08-26] MEDS: DOCUSATE SODIUM 100 MG CAP PO SCH (21:04)
[2024-08-26] MEDS: ACETAMINOPHEN 325 MG TAB PO PRN (22:00)
[2024-08-26] MEDS ORDERED: IBUPROFEN 200 MG TAB PO PRN (22:48)
--- NOTE | 2024-08-26 22:49 | Communication Note ---
Date of Service: August 26, 2024 Patient complaining of migraine not relieved by Tylenol. Okay to use Reglan or ibuprofen or Tylenol with codeine as per discussion with Dr. Hutchins of OB.
[2024-08-26] MEDS: IBUPROFEN 200 MG TAB PO STA (22:55)
[2024-08-26] MEDS: IBUPROFEN 200 MG/10 ML UDC PO STA (23:02)
[2024-08-27 04:01] VITALS: TEMP 98.4
[2024-08-27 06:19] LABS: Appearance Urine Clear (Clear); Bilirubin Urine Negative (Negative); Blood Urine Negative (Negative); Color Urine Yellow; Glucose Urine UA Negative (Negative); Ketones Urine Negative (Negative); Leukocyte Esterase Urine Negative (Negative); Nitrite Urine Negative (Negative); Protein Urine Negative (Negative); Specific Gravity Urine 1.017 (1.000-1.030); Urobilinogen Urine Negative (Negative)
[2024-08-27 06:39] LABS: Basophils # (auto) 0.03 K/uL (0.00-0.20); Basophils % (auto) 0.3 %; Eosinophils # (auto) 0.08 K/uL (0.00-0.50); Eosinophils % (auto) 0.9 %; Hematocrit (blood only) 34.6 % (37.0-47.0); Hemoglobin 11.8 g/dl (12.0-16.0); Immature Granulocytes # (auto) 0.06 K/uL (0.01-0.20); Immature Granulocytes % (auto) 0.6 %; Lymphocytes # (auto) 2.51 K/uL (1.20-3.40); Lymphocytes % (auto) 26.7 %; Mean Corpuscular Hemoglobin 31.6 pg (25.0-34.0); Mean Corpuscular Hgb Conc 34.1 g/dL (32.0-36.0); Mean Corpuscular Volume 92.8 fL (80.0-100.0); Mean Platelet Volume 10.2 fL (9.4-12.4); Monocytes # (auto) 0.54 K/uL (0.11-0.59); Monocytes % (auto) 5.7 %; Neutrophils # (auto) 6.18 K/uL (1.40-6.50); Neutrophils % (auto) 65.8 %; Platelet Count 216 K/uL (130-400); RDW Coefficient of Variation 12.7 % (11.5-14.5); RDW Standard Deviation 43.1 fL (36.4-46.3); Red Blood Count 3.73 M/uL (4.20-5.40)
[2024-08-27 06:43] LABS: BUN Creatinine Ratio 10.2 (10-20); Calcium 7.5 mg/dl (8.6-10.3); Creatinine Clr Calc Pharmacy 217.5 ml/min; Potassium 3.6 mmol/L (3.5-5.1)
[2024-08-27] MEDS: PRENATAL VITAMIN 1 TAB PO SCH (07:34)
[2024-08-27 08:07] VITALS: RESP 17
[2024-08-27 11:35] VITALS: BP 99/66; PULSE 78; O2SAT 97
--- NOTE | 2024-08-27 13:06 | Hospitalist Progress Note ---
Date of Service August 27, 2024 Assessment & Plan (1) BPPV (benign paroxysmal positional vertigo): (2) Adverse drug reaction: (3) 11 weeks gestation of : Plan Patient is a 29 yr old F who has a significant PMH of psoriatic arthritis, obesity, HLD, migraine, GERD and currently 11 weeks who presents to ED 2/2 ill feeling x 1 day. Pt started immunotherapy for psoriatic arthritis, Cimzia, prior to admission day. Shortly after starting she developed worsened nausea, vomiting, dizziness, CHOU and abd cramping that has persisted. Given hx of known she came in for evaluation. ED ordered D-dimer which was 1,800 and therefore CTA chest. 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 This represents a left to right shunt. Recommended to be admitted due to persistent dizziness, N/V and abnormal CTA Dizziness Likely BPPV DD: Migraine, ADR to Cimzia Psoriatic arthritis Pt worsened N/V and MODI likely 2/2 Cimzia in setting of first trimester --CT head:No acute intracranial abnormality. 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 This represents a left to right shunt. Abnormal ECHO: Left ventricular systolic function is normal. EF 60 to 65%. Right ventricular cavity size is normal. Right ventricular systolic function is normal as assessed by tricuspid annular plane systolic excursion. Very small [id number] shunt noted with injection of agitated saline contrast. Microcavitation appears in the left ventricle after 4 cardiac cycles suggesting possible extracardiac shunting. --Advised to follow-up with pulmonology and cardiology as outpatient Elevated d dimer likely 2/2 CTA, venous Doppler showed no clots Abdominal cramping 11 weeks gestation Appreciate SPEECH LANGUAGE PATHOLOGIST TRAVEL input Follow-up as outpatient Abnormal UA Rule out UTI Urine culture negative Asymptomatic DVT px: encourage ambulation at tolerated CODE STATUS FULL CODE Disposition Home Admission and Anticipated Discharge Date Admission Date: August 26, 2024 Subjective Patient is seen and examined at bedside Dizziness, headache, abdominal cramping much improved Reports chronic dyspnea on exertion Denies any dysuria, hematuria, chest pain, nausea, vomiting Discussed with patient's family at bedside No other complaints Review of Systems Review of Systems: All systems reviewed & are unremarkable except as noted in Subjective Physical Exam Physical Exam: Physical Exam: Vitals signs as noted above General Appearance:Obese, no apparent distress Head: normocephalic, Atraumatic Eyes: normal inspection, EOMI Neck: supple, Trachea midline Respiratory/Chest: Normal breath sounds, CTA, No accessory muscle use Cardiovascular: S1, S2, No murmur Abdomen/GI:Soft, Non tender, Bowel sounds present Extremities/Musculoskeletal:normal inspection, no edema Neurologic/Psych:AAOX3, grossly no focal neurological deficits Skin: normal color, warm Results & Data Results & Data Vital Signs (Past 12 Hours) Vital Signs Temp Pulse Pulse Resp BP Pulse Ox O2 Del Method 08/27/24 11:33 36.9 C 78 17 99/66 L 97 Room Air 08/27/24 08:06 36.9 C 92 H 17 126/80 92 Room Air 08/27/24 06:45 103 H 08/27/24 04:00 36.9 C 66 20 112/64 98 Room Air Laboratory Results Short CBC 08/26/24 08/27/24 Range/Units 13:02 05:54 WBC 14.88 H 9.40 (4.8-10.8) K/ul Hgb 14.9 11.8 L D (12.0-16.0) g/dl Hct 43.0 34.6 L (37.0-47.0) % Plt Count 272 216 (130-400) K/uL BMP 08/26/24 08/27/24 13:02 05:54 Sodium 137 137 Potassium 3.8 3.6 Chloride 104 110 H Carbon Dioxide 25 23 BUN 7 5 L Creatinine 0.53 L 0.49 L Glucose 93 86 Calcium 8.8 7.5 L Liver Function 08/26/24 Range/Units 13:02 Total Bilirubin 0.7 (0.2-1.0) mg/dl AST 17 (13-39) U/L ALT 17 (7-52) U/L Alkaline Phosphatase 57 (34-104) U/L Albumin 3.8 (3.4-5.0) gm/dl Urine 08/26/24 08/27/24 Range/Units 13:02 06:07 Urine Color Dark Yellow Yellow Urine Appearance Turbid A Clear (Clear) Urine pH 5.0 7.0 (4.5-7.5) Ur Specific [place] 1.033 H 1.017 (1.000-1.030) Urine Protein 1+ H Negative (Negative) Urine Glucose (UA) Negative Negative (Negative)
--- NOTE | 2024-08-27 13:20 | Discharge Summary ---
Date of Service August 27, 2024 Admission HPI Per Admitting Provider This is a 29 yr old F who has a significant PMH of psoriatic arthritis, obesity, HLD, migraine, GERD and currently 11 weeks who presents to ED 2/2 ill feeling x 1 day. She follows with Dr. Kaufman for rheumatology. She was recently started on Cimzia for her PA and . Her 1st inj was last night. Shortly after the injection she got significantly more nauseated than her normal nausea, MODI, dizziness and had vomiting. She went to bed thinking she would feel better in the morning. As she progressed throughout work today she became more and more ill feeling with nausea and vomiting. Her eyes became blood shot and her one coworker thought they were yellow. She communicated to her aviation metalsmith who recommended she be seen in ED for further evaluation given the fact she is also . She further complains of lower abd cramping that has been present all day. She denies any vaginal bleeding or discharge. She states nothing makes this worse. She reports the dizziness has been an on going thing. It is worse with quick head movements. It seems to be worse since taking the Cimzia. The is also accompanied with worsening nausea and vomiting. She reports some sinus congestion. Her boyfriend at bedside has been having a cough. She denies documented f/c/s, chest pain, sob at rest, hemoptysis, dysuria, increased urg/freq with urination. She currently has been constipated. She does report some CHOU and lower ext swelling. Hx obtained from boyfriend at bedside and pt along with external chart review. In ED pt was hemodynamically stable. Her BP was adequate. Her LFTS were normal. 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 This represents a left to right shunt. She had a CT head which was unremarkable. She will be admitted for further observation and echocardiogram. Recently had UTI and treated with keflex. Also had norovirus in July. Admission Exam Per Admitting Provider constitutional: WD/WN, vitals as above, NAD, sitting up in bed, pleasant, conv ersing easily Head: Normocephalic, Atraumatic Eyes: PERRL, conjunctivae normal, anicteric sclerae ENMT: external ear and nose normal, oropharynx normal , Internal aud canal clear, TMS WNL bl Neck: trachea midline, no thyromegaly normal visual inspection Respiratory: normal respiratory effort, lungs clear to auscultation, no wheeze, rales, rhonchi. Normal insp/exp effort, no accessory muscle use Cardiovascular: RRR, no murmur, no edema Vessels: no JVD or carotid bruit Chest: normal inspection of chest Abdomen: obese, normal bowel sounds, soft, nontender, no hepatosplenomegaly Musculoskeletal: no cyanosis or clubbing, AROM x4 Skin: +psoriasis patches on extensor arm surfaces, chin, no rashes, warm and dry normal turgor Neurologic: + exac of dizziness with EOMI and quick head movements, PERRL, EOMI, accommodation nl, no face palsy, no dysarthria CN's II-XI intact bilaterally and moves all extremities Psychiatric: A+Ox3, euthymic affect : deferred Principal Diagnosis Dizziness Migraine Partial anomalous pulmonary venous return Atrial septal defect Discharge Data Allergies Allergy/AdvReac Type Severity Reaction Status Date / Time No Known Allergies Allergy NONE Verified 08/11/24 09:37 Consultations 08/26/24 16:08 ED Decision to Admit Stat 08/26/24 17:04 Consult Obstetrics Routine Procedures Performed Laboratory Results WBC 9.40 K/ul (4.8-10.8) 08/27/24 05:54 RBC 3.73 M/uL (4.20-5.40) L 08/27/24 05:54 Hgb 11.8 g/dl (12.0-16.0) L D 08/27/24 05:54 Hct 34.6 % (37.0-47.0) L 08/27/24 05:54 MCV 92.8 fL (80.0-100.0) 08/27/24 05:54 MCH 31.6 pg (25.0-34.0) 08/27/24 05:54 MCHC 34.1 g/dL (32.0-36.0) 08/27/24 05:54 RDW Std Deviation 43.1 fL (36.4-46.3) 08/27/24 05:54 RDW Coeff of Kemi 12.7 % (11.5-14.5) 08/27/24 05:54 Plt Count 216 K/uL (130-400) 08/27/24 05:54 MPV 10.2 fL (9.4-12.4) 08/27/24 05:54 Immature Gran % (Auto) 0.6 % 08/27/24 05:54 Neut % (Auto) 65.8 % 08/27/24 05:54 Lymph % (Auto) 26.7 % 08/27/24 05:54 [place] % (Auto) 5.7 % 08/27/24 05:54 Eos % (Auto) 0.9 % 08/27/24 05:54 Baso % (Auto) 0.3 % 08/27/24 05:54 Neut # (Auto) 6.18 K/uL (1.40-6.50) 08/27/24 05:54 Lymph # (Auto) 2.51 K/uL (1.20-3.40) 08/27/24 05:54 [place] # (Auto) 0.54 K/uL (0.11-0.59) 08/27/24 05:54 Eos # (Auto) 0.08 K/uL (0.00-0.50) 08/27/24 05:54 Baso # (Auto) 0.03 K/uL (0.00-0.20) 08/27/24 05:54 Immature Gran # (Auto) 0.06 K/uL (0.01-0.20) 08/27/24 05:54 PT 10.3 Seconds (9.0-12.0) 08/26/24 13:02 INR 0.9 (0.9-1.1) 08/26/24 13:02 APTT 24 Seconds (21-31) 08/26/24 13:02 PTT Ratio 0.9 08/26/24 13:02 D-Dimer 1730 ug/L FEU (0-500) H* 08/26/24 13:02 Sodium 137 mmol/L (136-145) 08/27/24 05:54 Potassium 3.6 mmol/L (3.5-5.1) 08/27/24 05:54 Chloride 110 mmol/L (98-107) H 08/27/24 05:54 Carbon Dioxide 23 mmol/L (21-32) 08/27/24 05:54 Anion Gap 4 (3-11) 08/27/24 05:54 BUN 5 mg/dl (6-23) L 08/27/24 05:54 Creatinine 0.49 mg/dl (0.6-1.2) L 08/27/24 05:54 Est Cr Clr Drug Dosing 217.5 ml/min 08/27/24 05:54 eGFR 131.57 08/27/24 05:54 BUN/Creatinine Ratio 10.2 (10-20) 08/27/24 05:54 Glucose 86 mg/dl (70-99(Fasting)) 08/27/24 05:54 Calcium 7.5 mg/dl (8.6-10.3) L 08/27/24 05:54 Total Bilirubin 0.7 mg/dl (0.2-1.0) 08/26/24 13:02 AST 17 U/L (13-39) 08/26/24 13:02 ALT 17 U/L (7-52) 08/26/24 13:02 Alkaline Phosphatase 57 U/L (34-104) 08/26/24 13:02 Troponin I High Sens 2.5 pg/ml (0-14) 08/26/24 13:02 Total Protein 6.8 gm/dl (6.0-8.3) 08/26/24 13:02 Albumin 3.8 gm/dl (3.4-5.0) 08/26/24 13:02 Globulin 3.0 gm/dl (2.5-4.0) 08/26/24 13:02 Albumin/Globulin Ratio 1.3 (0.9-2) 08/26/24 13:02 Urine Color Yellow 08/27/24 06:07 Urine Appearance Clear (Clear) 08/27/24 06:07 Urine pH 7.0 (4.5-7.5) 08/27/24 06:07 Ur Specific [place] 1.017 (1.000-1.030) 08/27/24 06:07 Urine Protein Negative (Negative) 08/27/24 06:07 Urine Glucose (UA) Negative (Negative) 08/27/24 06:07 Urine Ketones Negative (Negative) 08/27/24 06:07 Urine Blood Negative (Negative) 08/27/24 06:07 Urine Nitrite Negative (Negative) 08/27/24 06:07 Urine Bilirubin Negative (Negative) 08/27/24 06:07 Urine Urobilinogen Negative (Negative) 08/27/24 06:07 Ur Leukocyte Esterase Negative (Negative) 08/27/24 06:07 Urine WBC (Auto) 0-5 /hpf (0-5) 08/26/24 13:02 Urine RBC (Auto) 3-5 /hpf (0-2) H 08/26/24 13:02 U Hyaline Cast (Auto) 0-2 /lpf (0-2) 08/26/24 13:02 U Epithel Cells (Auto) 6-10 /hpf (0-2) H 08/26/24 13:02 Urine Bacteria (Auto) 2+ (None Seen) H 08/26/24 13:02 Urine Mucus Present (None Prsent) A 08/26/24 13:02 Adenovirus (PCR) Not Detected (NotDetected) 08/26/24 17:06 B. pertussis DNA (PCR) Not Detected (NotDetected) 08/26/24 17:06 B.parapertussis DNA PCR Not Detected (NotDetected) 08/26/24 17:06 C. pneumoniae DNA (PCR) Not Detected (NotDetected) 08/26/24 17:06 Coronavirus OC43 (PCR) Not Detected (NotDetected) 08/26/24 17:06 Coronavirus HKU1 (PCR) Not Detected (NotDetected) 08/26/24 17:06 Coronavirus 229E (PCR) Not Detected (NotDetected) 08/26/24 17:06 SARS-CoV-2 (PCR) Not Detected (NotDetected) 08/26/24 17:06 Coronavirus NL63 (PCR) Not Detected (NotDetected) 08/26/24 17:06 Human Metapneumovir PCR Not Detected (NotDetected) 08/26/24 17:06 Influenza Type A (PCR) Not Detected (NotDetected) 08/26/24 17:06 Influenza Type B (PCR) Not Detected (NotDetected) 08/26/24 17:06 M. pneumoniae (PCR) Not Detected (NotDetected) 08/26/24 17:06 Parainfluenza 1 (PCR) Not Detected (NotDetected) 08/26/24 17:06 Parainfluenza 2 (PCR) Not Detected (NotDetected) 08/26/24 17:06 Parainfluenza 3 (PCR) Not Detected (NotDetected) 08/26/24 17:06 Parainfluenza 4 (PCR) Not Detected (NotDetected) 08/26/24 17:06 RSV (PCR) Not Detected (NotDetected) 08/26/24 17:06 Entero/Rhino (PCR) Not Detected (NotDetected) 08/26/24 17:[address] 08/26/24 13:12 CT head/brain wo con CLINICAL HISTORY: 29 years-old Female with dizzy. Acute dizziness TECHNIQUE: Multiple axial CT images of the head were obtained without contrast. A dose lowering technique was utilized adhering to the principles of ALARA. COMPARISON: None. FINDINGS: No acute intracranial hemorrhage, midline shift, intracranial mass, hydrocephalus, territorial ischemia or abnormal extra-axial collection. The calvarium is intact. The paranasal sinuses, mastoid air cells, and middle ear cavities are clear. IMPRESSION: No acute intracranial abnormality. ACT 112: Negative or not required by law. The above report was generated using voice recognition software. It may contain grammatical, syntax or spelling errors. Electronically signed by: Ray Dwyer M.D. 08/26/2024 2:34 PM Chest CTA 08/26/24 14:07 CT ANGIOGRAM OF THE CHEST CLINICAL HISTORY: Shortness of breath. . COMPARISON STUDY: Chest radiograph September 01, 2017. TECHNIQUE: Following the IV administration of 115 cc of Optiray 320, CT angiogram of the chest was performed from the upper abdomen to the thoracic inlet utilizing the pulmonary embolus protocol. Images are reviewed in the axial, sagittal, and coronal planes. 3-D MIPS images are created and assessed. IV contrast was administered without complication. A dose lowering technique was utilized adhering to the principles of ALARA. CT DOSE: 1514.6 mGy.cm FINDINGS: Thyroid: Unremarkable. Thoracic aorta: The caliber of the thoracic aorta is normal. No dissection is seen. Pulmonary vasculature: The caliber of the pulmonary trunk is normal. There are no filling defects identified in main, lobar, or segmental pulmonary branches to suggest pulmonary embolus. Subsegmental pulmonary arteries are suboptimally assessed due to mild respiratory motion. Incidental note is made of partial anomalous pulmonary venous return. The left upper lobe drains into the left brachiocephalic vein. Heart: The size of the heart is normal. There is no pericardial effusion. Lungs and pleural spaces: The lungs and pleural spaces are clear. Mediastinum: There is no mediastinal lymphadenopathy. Lydia: There is no hilar adenopathy. Axillae: There is no axillary lymphadenopathy. Upper abdomen: Visualized portions of the upper abdomen are unremarkable. Skeletal structures: No lytic or blastic bony lesions are seen. IMPRESSION: 1. No pulmonary emboli identified although subsegmental vessels suboptimally assessed due to mild motion artifact. 2. No acute intrathoracic findings. 3. 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 This represents a left to right shunt. ACT 112: Negative or not required by law. Electronically signed by: Richard Castillo M.D. 08/26/2024 2:49 PM Venous Doppler Study 08/26/24 16:56 Clinical History: Elevated d-dimer Technique: Venous ultrasound evaluation was performed utilizing grayscale, color Doppler and wave form evaluation. Images were also obtained with and without compression Findings: The bilateral common femoral, superficial femoral, popliteal, and visualized calf veins demonstrate normal anechoic lumens with full compressibility. Normal flow is seen on color Doppler images. Expected waveforms were produced with augmentation maneuvers Impression: No evidence of deep venous thrombosis Electronically signed by Jimbo Wolfe 08-26-2024 7:11 PM Ordered Studies 08/26/24 13:12 CT head/brain wo con Stat 08/26/24 14:07 CT angio chest PE protocol Stat 08/26/24 16:56 US venous doppler LE Stat Hospital Course (1) BPPV (benign paroxysmal positional vertigo): (2) Adverse drug reaction: (3) 11 weeks gestation of : Plan Patient is a 29 yr old F who has a significant PMH of psoriatic arthritis, obesity, HLD, migraine, GERD and currently 11 weeks who presents to ED 2/2 ill feeling x 1 day. Pt started immunotherapy for psoriatic arthritis, Cimzia, prior to admission day. Shortly after starting she developed worsened nausea, vomiting, dizziness, CHOU and abd cramping that has persisted. Given hx of known she came in for evaluation. ED ordered D-dimer which was 1,800 and therefore CTA chest. 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 This represents a left to right shunt. Recommended to be admitted due to persistent dizziness, N/V and abnormal CTA Dizziness Likely BPPV DD: Migraine, ADR to Cimzia Psoriatic arthritis Pt worsened N/V and MODI likely 2/2 Cimzia in setting of first trimester --CT head:No acute intracranial abnormality. -- Normal orthostatics -- Had PT eval for BPPV Would recommend holding off on Cimzia for now until sx resolve and further discussion with aviation metalsmith Plan to be discharged home today Migraine Pain control Follow-up as outpatient Abnormal CTA chest Partial anomalous pulmonary venous return with the left upper lobe draining into the left brachiocephalic vein. This represents a left to right shunt. Abnormal ECHO: Left ventricular systolic function is normal. EF 60 to 65%. Right ventricular cavity size is normal. Right ventricular systolic function is normal as assessed by tricuspid annular plane systolic excursion. Very small [id number] shunt noted with injection of agitated saline contrast. Microcavitation appears in the left ventricle after 4 cardiac cycles suggesting possible extracardiac shunting. --Advised to follow-up with pulmonology and cardiology as outpatient Elevated d dimer likely 2/2 CTA, venous Doppler showed no clots Abdominal cramping 11 weeks gestation Appreciate CONSULTANT DIETITIAN input Follow-up as outpatient Abnormal UA Rule out UTI Urine culture negative Asymptomatic DVT px: encourage ambulation at tolerated CODE STATUS FULL CODE Disposition Home Total Time Total Time Spent Total Time Spent (In Minutes): 44 minutes Discharge Plan Discharge Items Patient Disposition: Home - Self-Care Reason For Visit: DIZZINESS Discharge Diagnosis: Dizziness Migraine Partial anomalous pulmonary venous return Atrial septal defect Activity: Per Instructions section Exercise/Sports: Wait until after follow-up appointment Non-emergency contact: Primary Care Provider, Auto Parts Manager, Over Short And Damage Clerk and Screenplay Writer Call non-emergency contact if: you have any medication questions, your symptoms worsen, your pain is concerning for you and you have a fever Follow-up/Referrals: Renu Pizano DO [Primary Care Provider] - (Date & Time 09/02/2024 1:40 PM Provider: Renu Pizano DO [facility] ) Diet: Regular Addtl Attending Provider Instructions: Follow-up with your primary care physician on 09/02/2024 1:40 PM Follow-up with your CONSULTANT DIETITIAN Dr. Hutchins as recommended Follow-up with your employment program representative and case picker for further evaluation of abnormal CT, echo results as advised. Seek immediate medical attention if your symptoms reoccur or worsen Please review medication list provided on discharge for any medication changes as instructed. Please call if you have any questions or problems. You can reach a [facility] hospitalist on duty at [facility] 24 hours a day by calling [phone] Pending Studies at Discharge: No Stand-Alone Forms: My [facility] CueSongs, Smoking Cessation Medications and DC Order Prescriptions: Continued Cimzia Starter Kit 400 mg/2 mL (200 mg/mL x 2) syringe kit 0 mg SUBCUT UD ondansetron HCl 4 mg tablet 4 mg PO UD PRN (Reason: Nausea And Vomiting) 28-800 mg-mcg Tablet 1 tab PO DAILY Discharge Orders: Discharge Order (Routine); Ordered 08/27/24 Ordered By: Simon Kirk Admission Data Admit Date/Time: 08/26/24 16:14 Attending Provider: Simon Kirk Admit Provider: Grace Martin Primary Care Provider: Renu Pizano Other Providers: Ray Hutchins; Grace Martin
== END 2024-08-27 13:41 | disposition home or self-care (01) ==
LOC: ED 12:26 → EDINP 12:26 → SUATTDRO 16:14 → 2N 19:46

== ENCOUNTER 2025-03-07 06:58 | Inpatient (IN) ==
--- NOTE | 2025-02-25 14:19 | Anesthesiology Consultation ---
Date of Service February 25, 2025 Assessment & Plan (1) Encounter for pre-operative examination: - Patient seen by Vandana Onink PAC at [facility] as Exam & Advise in regards to upcoming (new V# created, therefore I am completing a new anesthesia consult under the new/current V#). Per Vandana Onink PAC anesthesia consult 12/23/24 + addendums: * "Exam & Advise: patient seen at [facility] 12/23/24 (JANAE 03/14/25). Concern regarding upcoming delivery given patient's left to right cardiovascular shunt and if patient is acceptable to deliver here at [facility] or needs care through a tertiary care center. Patient educated on epidural/spinal; plan at this point for c- section 03/07/25. All questions answered. Patient and father of baby seem satisfied. Business card given." * "left to right cardiovascular shunt. Patient reporting ongoing intermittent episodes of dizziness, near syncope, shortness of breath and vomiting. Last episode 12/18 with resolution after resting. Patient and her feel there is correlation to when patient is overheated, she states is not drinking enough water as recommended by OB. * "lost to follow-up from [facility] hematology recommendations to return for additional work-up after 2nd in 2022 due to extensive family history of blood clots. Dr. Berrios advised nothing further needed from anesthesia standpoint-Ana with [facility] made aware." * "Cardiology response 12/27/24 [facility]: "I do not think the partial anomalous pulmonary venous return is of hemodynamic significance. OK to deliver at [facility]." * "Case discussed in detail with Dr. Berrios again regarding above cardiology response and that patient is not returning calls to [facility] maternal medicine for their recommended follow-up appointment and echocardiogram. He advised case be reviewed by [facility] pediatric hospitalist for ultimate d etermination regarding delivery. He advised if [facility] pediatric hospitalists feel comfortable with patient delivering at [facility], then it is fine from anesthesia standpoint.." * "Dr. Gotti, [facility] pediatric hospitalist, advised that his team is aware and has determined that patient can deliver here at [facility]. [facility] made aware." * "Cardiology office visit 01/28/25 [facility]: "...breathing has improved since the last visit...still experiences occasional episodes of lightheadedness and dizziness lasting about ten minutes, which improve with rest...did not have any shortness of breath symptoms prior to ... incidental finding of partially anomalous pulmonary venous return...has not completed all recommended lung-related tests such as pulmonary function testing and a 6 minute walk due to financial constraints... small [id number] extracardiac shunt, not concerning...previously discussed her case with an adult congenital heart disease specialist and no intervention was felt to be warranted. Heart appears normal except for this minor anomaly with normal chamber size and function. No evidence of pulmonary hypertension... stable from a cardiac perspective to proceed with planned delivery by at [facility]... clearance from maternal medicine has previously been obtained... no need for heart team standby during ..." Acceptable to proceed." - Infectious disease screening: Per assessment on 02/25/25- No known recent infectious disease contacts or current infectious disease symptoms. Chart Review Chart Review: Acceptable Risk for Surgery History Surgery Operation Date: 03/07/25 08:40 Proposed Procedures p Section (Delivery of Baby Through Abdominal Incision) - Francheska Lomeli MD Height/Weight Height: 5 ft 6.5 in Weight: 114.305 kg Allergies Allergy/AdvReac Type Severity Reaction Status Date / Time nickel Allergy Intermediate Contact Unverified 02/25/25 14:09 dermatitis Medications Home Medications Medication Instructions Recorded Confirmed Last Taken vits no.133-ferrous 1 tab PO DAILY 08/11/24 02/25/25 02/07/25 07:00 fumarate 28 mg-folic acid 800 mcg tablet () certolizumab pegol 200 mg/mL 200 mg subcut Q14D 01/14/25 02/25/25 01/21/25 subcutaneous syringe kit (Cimzia) ondansetron 4 mg disintegrating 4 mg PO Q6H PRN nausea and 01/14/25 02/25/25 Unknown tablet vomiting #20 tabs blood sugar diagnostic (OneTouch #150 ea 02/03/25 02/24/25 Unknown Verio test strips) lancets 33 gauge (OneTouch Delica #150 ea 02/03/25 02/24/25 Unknown Plus Lancet) Past Medical History Medical History Ankylosing spondylitis follows with Rheum; on Cimzia (on hold for last ~6 weeks of ) Biliary dyskinesia BPPV (benign paroxysmal positional vertigo) x 1 incident Celiac disease Constipation GERD (gastroesophageal reflux disease) stable per pt Gestational diabetes mellitus (GDM) affecting , antepartum with previous and current ; diet controlled with both pregnancies; recent BSG have all been 'perfect' per pt History of appetite changes History of COVID-19 (~2020) symptoms resolved History of ectopic History of gastrointestinal ulcer 2018-patient states was told of "possible Crohn's" History of gestational hypertension with first , attributed to stress; no issues with current Irregular bowel habits Left to right cardiovascular shunt follows with [facility] and pulmonology Obesity Partial anomalous pulmonary venous return follows with [facility] Psoriatic arthritis follows with Rheum; on Cimzia (on hold for last ~6 weeks of ) Sprain, symphysis pubis Terminal ileitis resolved Varicella vaccination Past Family History Family History Family/Other Family hx of colon cancer Family history of diabetes mellitus Mother , left leg DVT-PE-in setting of immobilization for COVID 19 pneumonia Family history of diabetes mellitus Kidney disease Deep vein thrombosis Other No family history of adverse response to anesthesia Past Surgical History Surgical History History of cholecystectomy (~2016) History of colonoscopy History of endoscopy History of wisdom tooth extraction Nausea and vomiting after administration of anesthetic agent with emergency and cholecystectomy S/P section 12/13/22; emergent C/S; pt had labor epidural in place; plan was to be dosed for C/S however per chart review and per pt's recollection, pt could still feel initial incision and converted to GA; pt states that she had 'less than optimal' results with epidural with this and with prior delivery (12/2016) also Social History Smoking Status: Former smoker tobacco type: cigarettes Do You Dip or Chew Tobacco: No Smoking End Date: 05/2024 Hx Alcohol Use: No Alcohol type: beer alcohol intake frequency: holidays/special occasions only Hx Substance Use: No substance use type: does not use Lab Results Anesthesia Preop Results Results Anesthesia Widget: WBC 9.20 K/ul (4.8-10.8) 01/14/25 Hgb 11.4 g/dl (12.0-16.0) L 01/14/25 Hct 33.8 % (37.0-47.0) L 01/14/25 Plt 177 K/uL (130-400) 01/14/25 Na 134 mmol/L (136-145) L 01/14/25 K 3.7 mmol/L (3.5-5.1) 01/14/25 Cl 102 mmol/L (98-107) 01/14/25 CO2 24 mmol/L (21-32) 01/14/25 BUN 5 mg/dl (6-23) L 01/14/25 Creat 0.52 mg/dl (0.6-1.2) L 01/14/25 Glucose Level 84 mg/dl (70-99(Fasting)) 01/14/25 Testing Electrocardiogram Date: 11/01/24 NSR, rate 86 bpm No significant change vs 11/01/24 EKG Chest X-Ray Date: 09/18/24 No acute cardiopulmonary process is identified. Echocardiogram Date: 08/27/24 LVEF 60-65% Very small tvizn-sj-csaw shunt noted with injection of agitated saline contrast Microcavitation appears in the LV after 4 cardiac cycles suggesting possible extracardiac shunting Normal LV wall motion No significant valvular pathology Doppler findings do not suggest pulmonary hypertension Cervical Spine Date: 09/18/24 Straightening of the normal cervical curvature may be due to positioning or spasm. No acute fracture, subluxation, or spinal stenosis is seen involving the cervical spine. Other Testing Chest CT 09/18/[address] Abdomen pelvis CT 09/18/24 1. Mild fatty infiltration of the liver and hepatomegaly with the liver measuring 21 cm craniocaudad. No focal liver lesion is seen. 2. Previous cholecystectomy. No biliary duct dilation is seen. 3. There is a gravid uterus. No free fluid is seen in the pelvis. 4. The appendix is normal. Bowel loops are nondilated. No acute traumatic or inflammatory process is seen involving the bowel. Venous doppler 08/26/24 No evidence of deep venous thrombosis. Chest CTA 08/26/24 1. No pulmonary emboli identified although subsegmental vessels suboptimally assessed due to mild motion artifact. 2. No acute intrathoracic findings. 3. 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 This represents a left to right shunt.
[2025-03-07] MEDS: LACTATED RINGER'S 1,000 ML IV SCH ×2 (07:56→08:59)
[2025-03-07] MEDS: ACETAMINOPHEN 500 MG TAB PO SCH (08:02)
[2025-03-07 08:13] LABS: Hematocrit (blood only) 34.3 % (37.0-47.0); Hemoglobin 11.3 g/dl (12.0-16.0); Mean Corpuscular Hemoglobin 29.8 pg (25.0-34.0); Mean Corpuscular Volume 90.5 fL (80.0-100.0); Platelet Count 222 K/uL (130-400); RDW Standard Deviation 43.5 fL (36.4-46.3); Red Blood Count 3.79 M/uL (4.20-5.40); White Blood Count 9.75 K/ul (4.8-10.8)
[2025-03-07] MEDS ORDERED: SODIUM CHLORIDE 0.9% 100 ML IV PRN (08:19)
--- NOTE | 2025-03-07 08:20 | History & Physical Bridge Note ---
Date of Service March 07, 2025 History & Physical Bridge Note I have examined the patient, reviewed the History & Physical and in the interval since the performance of the History & Physical I have noted the following changes of clinical significance: no changes noted
[2025-03-07] MEDS ORDERED: ONDANSETRON INJ 2 MG/ML 2 ML VIAL IV PRN ×2 (08:42→11:02)
[2025-03-07] MEDS ORDERED: MoRPHine SULFATE 4 MG/ML 1 ML CARP\\VIAL IV PRN (08:42)
[2025-03-07] MEDS ORDERED: LACTATED RINGER'S 500 ML IV PRN (08:42)
[2025-03-07] MEDS ORDERED: NALOXONE HCL 1 MG in SODIUM CHLORIDE 0.9% 1,000 ML IV PRN (08:42)
[2025-03-07] MEDS ORDERED: HYDROmorphone INJ 0.5 MG/0.5 ML SYR IV PRN (08:42)
[2025-03-07] MEDS ORDERED: NALBUPHINE HCL INJ 10 MG/ML AMP IV PRN (08:42)
[2025-03-07] MEDS ORDERED: NALOXONE HCL 0.08 MG in SYRINGE 1.8 ML IV PRN (08:42)
[2025-03-07] MEDS ORDERED: PROMETHAZINE 6.25 MG/50.25 ML BAG IV PRN (08:42)
[2025-03-07] MEDS ORDERED: NALOXONE HCL 0.4 MG/1 ML VIAL/CARP IV PRN (08:42)
[2025-03-07] MEDS ORDERED: MEPERIDINE HCL 25 MG/ML CARP/VIAL IV PRN (08:42)
[2025-03-07] MEDS ORDERED: NO NARCOTICS OR SEDATIVES SCH (08:45)
[2025-03-07] MEDS ORDERED: DC INTRASPINAL MORPHINE SCH (08:45)
[2025-03-07] MEDS: CITRIC ACID/SODIUM CITRATE 15 ML UDC PO SCH (08:58)
[2025-03-07] MEDS: ceFAZolin 3,000 MG/72.5 ML BAG IV SCH (09:49)
[2025-03-07] MEDS ORDERED: OXYTOCIN 10 UNITS/ML VIAL ONE ×3 (10:14→10:21)
[2025-03-07] MEDS ORDERED: MoRPHine SULFATE PF 1 MG/ML 10 ML AMP/VIAL ONE (10:20)
[2025-03-07] MEDS ORDERED: PHENYLEPHRINE HCL 25 MG/250 ML NSS IV ONE (10:21)
[2025-03-07] MEDS ORDERED: ONDANSETRON INJ 2 MG/ML 2 ML VIAL ONE (10:21)
--- NOTE | 2025-03-07 10:59 | Operative Report ---
PG Post Operative Report Pre & Post Diagnosis Operation Date: 03/07/25 08:40 Pre-Op Diagnosis: almaraz at term repeat section Post-Op Diagnosis: same I identified the patient and participated in the time-out.: Yes Procedure Operation Date: 03/07/25 08:40 Repeat Low Transverse Section Surgeon Francheska Lomeli MD Authorization Representative TATE Vázquez Estimated Blood Loss 119 (QBL) Findings Consistent with Post-Op Diagnosis Specimens Placenta, cord blood Anesthesia Type Spinal Complications none Disposition Accompanied Patient To Recovery: Yes Disposition: L&D Description of Procedure The patient was placed operating table in the supine position with a leftward tilt. She was prepped and draped in standard sterile fashion. The anesthetic was tested and found to be adequate. A time-out was held, identifying correct patient, procedure, positioning and preoperative antibiotics. There were no concerns. A Pfannenstiel skin incision was made with a knife and taken down to the underlying layer of fascia. The fascia was incised in the midline with the knife and taken out laterally with scissors. The superior edge of the fascial incision was grasped, elevated and dissected off the underlying rectus both superiorly and inferiorly. The muscles were bluntly in the midline. The peritoneum was entered bluntly. The incision was then stretched. The bladder retractor was placed. The vesicouterine peritoneum was identified, entered with scissors and taken out laterally with scissors. The bladder flap was created digitally. A hysterotomy incision was created transversely in the lower uterine segment, final entry being accomplished in a blunt manner with the mowing machine operator's fingers. Clear amniotic fluid was encountered. The mowing machine operator's hand was used to elevate the head to the hysterotomy. The head was delivered using mild fundal pressure, and the shoulders and body followed without difficulty. The cord was clamped and cut and the infant was then handed off to the awaiting network engineering advisor. Cord blood was obtained. The placenta was Manually extracted. The uterus was exteriorized and cleared of all clot and debris with moistened laparotomy sponges. The hysterotomy incision was repaired in two layers, the first in a running locked layer, the second in an imbricating layer. The ovaries and tubes were seen to be normal bilaterally. The uterus was gently replaced in the abdomen, and the gutters were cleared of clot and debris. A final inspection of the hysterotomy revealed good hemostasis. The rectus muscles were allowed to reapproximate naturally. The fascia was then reapproximated with 1 Vicryl in a running nonlocked manner. The fascia was examined and found to be free of defect following closure. The subcutaneous tissue was copiously irrigated and reapproximated with 0-chromic, then the skin edges were closed with 4-0 monocryl in a subcuticular fashion. A dermabond dressing was applied. The fleming was found to be draining clear yellow urine at completion of the procedure. I attest to the content of the Intraoperative Record and any orders documented therein. Any exceptions are noted below. I attest to the content of the Intraoperative Record and any orders documented therein. Any exceptions are noted below. OB Procedure Charges 10284
--- NOTE | 2025-03-07 11:01 | Anesthesiology Progress Note ---
Date of Service March 07, 2025 Anesthesia Post Procedure Vital Signs Vital Signs: Temp Pulse Resp BP Pulse Ox 03/07/25 10:54 99 03/07/25 10:54 96 H 03/07/25 10:54 117/54 L 03/07/25 08:20 36.6 C 20 03/07/25 07:11 85 129/81 Transfer of Care Handoff Completed per policy Notes Mental Status: alert / awake / arousable Nausea / Vomiting: adequately controlled Pain: adequately controlled Airway Patency, RR, SpO2: stable & adequate BP & HR: stable & adequate Hydration State: stable & adequate Neuraxial Anesthesia: was administered and sensory block is resolving Anesthetic Complications: no major complications apparent and Pt Satisfied with anesthetic care
[2025-03-07] MEDS ORDERED: MAGNESIUM HYDROXIDE SUSP 30 ML UDC PO PRN (11:02)
[2025-03-07] MEDS ORDERED: SENNA 8.6 MG TAB PO PRN (11:02)
[2025-03-07] MEDS ORDERED: BENZOCAINE 20% SPRY 85 APPLN/85 GM CAN EXT PRN (11:02)
[2025-03-07] MEDS ORDERED: diphenhydrAMINE Capsule 25 MG CAP PO PRN (11:02)
[2025-03-07] MEDS ORDERED: HYDROCORTISONE ACETATE 25 MG SUPP PR PRN (11:02)
[2025-03-07] MEDS ORDERED: CALCIUM CARBONATE 500 MG CHEWABLE TAB PO PRN (11:18)
[2025-03-07] MEDS: CALCIUM CARBONATE 500 MG CHEWABLE TAB PO PRN (11:37)
[2025-03-07] MEDS: KETOROLAC 30 MG/ML VIAL IV SCH (11:38)
[2025-03-07] MEDS: OXYTOCIN 20 UNITS/LR 1,002 ML IV SCH (13:23)
[2025-03-07] MEDS: ACETAMINOPHEN 325 MG TAB PO SCH (17:01)
[2025-03-07] MEDS: SIMETHICONE 80 MG CHEW PO SCH (17:01)
[2025-03-07] MEDS: LACTATED RINGER'S 1,000 ML IV ONE ×2 (17:57→18:09)
[2025-03-07] MEDS: DOCUSATE SODIUM 100 MG CAP PO SCH (21:25)
[2025-03-07] MEDS: diphenhydrAMINE 50 MG/ML VIAL IV PRN (22:14)
[2025-03-08] MEDS ORDERED: PROMETHAZINE 12.5 MG/50.5 ML BAG IV PRN (02:42)
[2025-03-08] MEDS ORDERED: HYDROmorphone INJ 0.5 MG/0.5 ML SYR IV PRN (02:42)
[2025-03-08] MEDS ORDERED: ONDANSETRON INJ 2 MG/ML 2 ML VIAL IV PRN (02:42)
[2025-03-08] MEDS ORDERED: diphenhydrAMINE 50 MG/ML VIAL IV PRN (02:42)
[2025-03-08] MEDS ORDERED: diphenhydrAMINE Capsule 25 MG CAP PO PRN (02:42)
[2025-03-08] MEDS: LACTATED RINGER'S 1,000 ML IV SCH ×2 (03:49→03:50)
[2025-03-08] MEDS: SODIUM CHLORIDE 0.9% 1,000 ML IV SCH (03:50)
[2025-03-08] MEDS: MoRPHine SULFATE PF 1 MG/ML 10 ML AMP/VIAL INT SPINAL ONE (03:50)
[2025-03-08] MEDS: DIPHTHER/TETAN/PERTUS Vaccine (Tdap, Adol/Adult) 0.5mL IM ONE (03:50)
[2025-03-08 06:06] LABS: Hematocrit (blood only) 28.9 % (37.0-47.0); Hemoglobin 9.3 g/dl (12.0-16.0); Immature Granulocytes # (auto) 0.06 K/uL (0.01-0.20); Immature Granulocytes % (auto) 0.6 %; Mean Corpuscular Hemoglobin 29.4 pg (25.0-34.0); Mean Corpuscular Volume 91.5 fL (80.0-100.0); Platelet Count 172 K/uL (130-400); RDW Standard Deviation 44.1 fL (36.4-46.3); Red Blood Count 3.16 M/uL (4.20-5.40); White Blood Count 9.54 K/ul (4.8-10.8)
--- NOTE | 2025-03-08 07:17 | Obstetrical Progress Note ---
Date of Service March 08, 2025 Assessment & Plan (1) Normal course: Plan: 30yo post-op day 1 s/p section Fells well today. Vital signs stable Continue post- care Encourage ambulation and Pain controlled Vitals and Hgb stable Peripad over incision site, Nystatin powder to keep area dry Hepatits B vaccine encouraged outpatient Hopeful discharge tomorrow Admission and Anticipated Discharge Date Admission Date: March 07, 2025 Supervising Physician Co-Signing Physician Notes Patient seen with resident and agree with the above findings plan. Continue routine care Subjective 30yo post-op day 1 s/p section Ambulation: Ambulating normally Voiding: No voiding problems Passing Gas:: Yes Diet Tolerance:: regular diet Lochia:: Small Feeding Type:: Current Pain Level: 2/10 controlled with Tylenol, Ketoralac Resting comfortably this AM in NAD. Denies MODI, CP, SOB, N/V/D, LE pain/swelling. Physical Exam Physical Exam: General: patient resting comfortably, NAD, non-toxic in appearance, answers questions appropriately Skin: warm, dry, intact Heart: S1/S2 heard, regular, no m/r/g Lungs: equal air entry bilaterally, no rales/rhonchi/wheezes Abd: Normoactive BS, soft, NT/ND, uterine fundus firm below umbilicus, incision clean, dry, and intact, ecchymosis superior to incision site Ext: warm, no clubbing/cyanosis or edema, [place]'s neg Neuro: nonfocal, patient AAOx4, speech intact, no facial droop, moving all extremities on command Results & Data Vital Signs (Past 12 Hours) Vital Signs Temp Pulse Resp BP Pulse Ox O2 Del Method 03/08/25 03:00 18 98 03/08/25 03:00 37.0 C 78 18 112/74 98 Room Air 03/08/25 02:00 18 98 03/08/25 01:00 18 99 03/08/25 00:00 18 98 03/07/25 23:00 18 98 03/07/25 23:00 36.7 C 68 18 109/68 98 Room Air 03/07/25 22:30 18 99 03/07/25 21:30 18 99 03/07/25 20:30 18 99 03/07/25 19:45 18 99 03/07/25 19:45 36.8 C 78 18 130/74 99 Room Air Resident Activity Tracking Resident Involvement: Resident Care Provided Care Provided: OB Delivery
[2025-03-08] MEDS: FERROUS SULFATE 325 MG TAB PO SCH (07:46)
[2025-03-08] MEDS: PRENATAL VITAMIN 1 TAB PO SCH (07:46)
[2025-03-08] MEDS: IBUPROFEN 600 MG TAB PO SCH (10:54)
[2025-03-08] MEDS ORDERED: KETOROLAC 30 MG/ML VIAL IV PRN (10:57)
[2025-03-08 16:21] VITALS: BP 127/81
[2025-03-08 19:44] VITALS: PULSE 92; RESP 20; TEMP 98.4; O2SAT 97
[2025-03-08] MEDS: INFLUENZA VACC TS2025-26(6m+)/PF (IIV3) 0.5mL Syr IM ONE (19:52)
[2025-03-08] MEDS: NYSTATIN POWDER 15GM BTL EXT PRN (19:52)
[2025-03-09] MEDS ORDERED: IBUPROFEN 600 MG TAB PO PRN (10:57)
[2025-03-09] MEDS ORDERED: ACETAMINOPHEN 325 MG TAB PO PRN (16:57)
== END 2025-03-08 22:20 | disposition home or self-care (01) | DRG 788 ==
LOC: 4S1 06:58 → EDSTATUS 07:30 → 4E2 14:00
DX: Z3A.00 Weeks of gestation of pregnancy not specified; O34.219 Maternal care for unspecified type scar from previous cesarean delivery; O24.410 Gestational diabetes mellitus in pregnancy, diet controlled; Z82.49 Family history of ischemic heart disease and other diseases of the circulatory system; Z87.891 Personal history of nicotine dependence; Z37.0 Single live birth